=== PATIENT | male | born 1950 | race Caucasian/White ===

== ENCOUNTER 2019-10-13 19:07 | Inpatient (IN) | payer OTHER ==
[~2019-10-13] VITALS: Ht 188 cm; Wt 118.1 kg
[2019-10-13 18:50] VITALS: BP 114/75
--- NOTE | 2019-10-13 18:50 | NUR ---
A 69 YEAR OLD MALE admitted to , under the services of KARLIE Jensen DO with a diagnosis of COVID-19. Chief complaint is SOB, ONSET 2 DAYS AGO,BODY ACHES, DIZZINESS.PULSE OX 84% ON RA. Patient arrived via stretcher from [place]. Monitor applied. Initial assessment completed. Vital signs taken and recorded. KARLIE JENSEN DO notified of admission to the unit. Orders received. See assessment for past medical history, medications and allergies. Patient and/or family oriented to unit. [facility] visitation policy reviewed. Clothing/patient valuable form completed. TERESITA VENEGAS
[2019-10-13] MEDS ORDERED: ASPIRIN CHEWABL81 MG PO (19:14)
[2019-10-13] MEDS ORDERED: TYLENOL325 M2 PO (19:14)
[2019-10-13] MEDS ORDERED: LIPITOR40 MG PO (19:14)
[2019-10-13] MEDS ORDERED: CYMBALTA60 MG PO (19:15)
[2019-10-13] MEDS ORDERED: LEVOTHYROXINE100 MC1 PO (19:15)
[2019-10-13] MEDS ORDERED: SINEMET CR 25-1 EACH PO (19:15)
[2019-10-13] MEDS ORDERED: LEVOTHYROXINE175 MCG PO (19:16)
[2019-10-13] MEDS ORDERED: LOPRESSOR25 MG PO (19:17)
[2019-10-13] MEDS ORDERED: LOPERAMIDE HCL2 MG PO (19:17)
[2019-10-13] MEDS ORDERED: ZOLOFT100 MG PO (19:18)
[2019-10-13] MEDS ORDERED: DILANTIN100 MG PO (19:18)
[2019-10-13] MEDS ORDERED: IMDUR SA60 MG PO (19:20)
--- NOTE | 2019-10-13 19:20 | NUR ---
MEDS RECONCILLED FROM LIST PROVIDED
[2019-10-13 19:26] LABS: ARTERIAL BLOOD GAS PH 7.441 (7.35-7.45)
[2019-10-13 20:00] VITALS: BP 131/70
[2019-10-13 20:01] LABS: HEMATOCRIT 37.3 % (42.0-52.0); MEAN CELL VOLUME 94.2 fl (80.0-94.0); MEAN CORPUSCULAR HGB 31.3 pg (27.0-31.0); MEAN CORPUSCULAR HGB CONC 33.2 g/dl (33.0-37.0); MEAN PLATELET VOLUME 9.4 fl (9.6-12.3); PLATELET COUNT AUTOMATED 247 10*3/uL (130-400); RED BLOOD COUNT 3.96 10*6/uL (4.50-5.90); RED CELL DISTRI WIDTH 12.9 % (0-14.5)
[2019-10-13 20:19] LABS: ALBUMIN 2.7 gm/dl (3.1-4.5); ALKALINE PHOSPHATASE 77 U/L (45-117); BUN 13 mg/dl (7-24); CHLORIDE 103 mmol/L (98-107); CREATININE 0.72 mg/dL (0.70-1.30); LDH 465 U/L (87-241); POTASSIUM 3.6 mmol/L (3.5-5.1); SGOT/AST 33 IU/L (3-35); SGPT/ALT 22 U/L (12-78); SODIUM 133 mmol/L (136-145); TOTAL PROTEIN 6.9 gm/dL (6.4-8.2)
[2019-10-13 20:21] LABS: TROPONIN I 0.093 ng/ml (<0.045)
[2019-10-13 20:26] LABS: ATYPICAL LYMPHS 1 % (0-0); BURR CELLS FEW; PLATELET SUFFICIENCY NORMAL (NORMAL); TOTAL CELLS COUNTED 100 #CELLS
[2019-10-14] VITALS (61 sets, daily range): BP systolic 70–155; BP diastolic 49–85
--- NOTE | 2019-10-14 01:00 | NUR ---
PT TITRATED TO A 50% VM. AT THIS TIME HE IS JOLANTA. WELL. SATS 93-94%.
[2019-10-14 01:30] LABS: BILIRUBIN NEGATIVE (NEGATIVE); CLARITY CLEAR (CLEAR); COLOR YELLOW (YELLOW); GLUCOSE NEGATIVE (NEGATIVE); KETONE 1+ (NEGATIVE); SPECIFIC GRAVITY 1.025 (1.005-1.030)
[2019-10-14 01:31] LABS: BLOOD TRACE-INTACT (NEGATIVE); LEUKO ESTERASE NEGATIVE (NEGATIVE); NITRITE NEGATIVE (NEGATIVE)
[2019-10-14 01:34] LABS: RBC 0-2 rbc/hpf (0-2)
[2019-10-14 01:35] LABS: BACTERIA 1+; EPITHELIAL CELLS 0-2; FINE GRANULAR CAST 0-2; MUCOUS 2+
--- NOTE | 2019-10-14 04:22 | NUR ---
0405 PT PREMEDICATED FOR EMERGENT INTUBATION. PT AGREEABLE TO INTUBATION. 0410 PT INTUBATED WITH SIZE [address] ORDOÑEZ AND MEDICAL DIR VISHAL. 24 AT [facility]. PLACEMENT CONFIRMED. PT TOLERATED FAIR. PT PLACED ON VENT AT PREVIOUS SETTINGS ORDERED PER DR. SANDY 0415 WRIST RESTRAINTS APPLIED BILATERALLY TO PREVENT SELF EXTUBATION. 0420 ADDITIONAL DOSE OF ZEMURON GIVEN PER ORDER AND EFFECTIVE. PT PLACED ON 100%B FIO2. 0430 #16 GRIMM INSERTED USING STERILE TECHNIQUE. TOLERATED FAIR. DR. ORDOÑEZ TO INSERT ART LINE AND MLC.
--- NOTE | 2019-10-14 05:45 | NUR ---
0500 R RADIAL ART LINE INSERTED. TOLERATED WELL. ZEROED AND CALIBRATED. RIJ MLC INSERTED. STERILE DRSG TO SITE. ALL PORTS PATENT AND FLUSH WELL. #16 OGT INSERTED. TOLERATED WELL. CLAMPED. 0550 COMPLETE BED CHANGE DONE. XRAY HERE FOR PORTABLE CXR TO CONFIRM ALL LINE PLACEMENTS. SEE INTERVENTION SCREEN FOR ALL APPROPRIATE INTERVENTIONS AND EMAR FOR ALL MEDS
[2019-10-14 05:48] LABS: ARTERIAL BLOOD GAS PH 7.276 (7.35-7.45)
--- NOTE | 2019-10-14 05:50 | NUR ---
PT RECTAL TEMP IS NOW 104.4. DR ORDOÑEZ HERE AND AWARE. GETTING HYPOTHERMIA BLANKET READY.
[2019-10-14 05:52] LABS: ABG BASE EXCESS -6.9 mmol/L (-2.0-2.0)
[2019-10-14 07:22] LABS: HEMATOCRIT 42.6 % (42.0-52.0); MEAN CELL VOLUME 96.4 fl (80.0-94.0); MEAN CORPUSCULAR HGB 31.4 pg (27.0-31.0); MEAN CORPUSCULAR HGB CONC 32.6 g/dl (33.0-37.0); MEAN PLATELET VOLUME 9.5 fl (9.6-12.3); PLATELET COUNT AUTOMATED 285 10*3/uL (130-400); RED BLOOD COUNT 4.42 10*6/uL (4.50-5.90); RED CELL DISTRI WIDTH 13.2 % (0-14.5); WHITE BLOOD COUNT 12.8 10*3/uL (4.8-10.8)
[2019-10-14 07:31] LABS: ACT PARTIAL THROMBO TIME 30.3 SECONDS (20.0-32.1); INTERNATIONAL NORM RATIO 1.2 (2.0-3.5)
--- NOTE | 2019-10-14 07:42 | NUR ---
Shift chart check completed.
[2019-10-14 07:48] LABS: BASOPHILS 1 % (0-1); BURR CELLS FEW; PLATELET SUFFICIENCY NORMAL (NORMAL); ROULEAUX SLIGHT; TOTAL CELLS COUNTED 100 #CELLS
[2019-10-14 07:50] LABS: ALBUMIN 2.7 gm/dl (3.1-4.5); ALKALINE PHOSPHATASE 94 U/L (45-117); BUN 15 mg/dl (7-24); CHLORIDE 104 mmol/L (98-107); CREATININE 0.93 mg/dL (0.70-1.30); POTASSIUM 3.9 mmol/L (3.5-5.1); SGOT/AST 49 IU/L (3-35); SGPT/ALT 28 U/L (12-78); SODIUM 136 mmol/L (136-145); TOTAL PROTEIN 7.6 gm/dL (6.4-8.2)
[2019-10-14 12:48] LABS: ARTERIAL BLOOD GAS PH 7.283 (7.35-7.45)
[2019-10-14 12:49] LABS: ABG BASE EXCESS -8.2 mmol/L (-2.0-2.0)
--- NOTE | 2019-10-14 20:00 | NUR ---
Patient resting on vent, no signs of distress.
--- NOTE | 2019-10-14 20:05 | NUR ---
1940 BURST SVT 150-160 VSS. TEMP 100.2 RECTAL..VENT SHOWS SQUARE WAVEFORM DR SANDY REQUESTED... 1945 RHYTHM BROKE RATE [address]... DR ARREDONDO CALLED.. EKG DONE & SHOWS SINUS TACH RATE 107..FENTANYL INCREASED TO SEE IF THAT HELPS
[2019-10-15] VITALS (97 sets, daily range): BP systolic 83–168; BP diastolic 44–94
--- NOTE | 2019-10-15 | NUR ---
Patients heart rates goes tach up to 140 for several minutes, then back to low 100's.
--- NOTE | 2019-10-15 02:00 | NUR ---
Patients heart rate normal sinus in the 80's, no other issues of tach.
--- NOTE | 2019-10-15 05:50 | NUR ---
RESP 36, TV 400-600, AGITATION. ROCURONIUM GIVEN. EFFECTIVE IMMEDIATELY. MONITORING.
[2019-10-15 06:31] LABS: HEMATOCRIT 41.5 % (42.0-52.0); MEAN CORPUSCULAR HGB 31.5 pg (27.0-31.0); MEAN CORPUSCULAR HGB CONC 32.5 g/dl (33.0-37.0); MEAN PLATELET VOLUME 10.3 fl (9.6-12.3); PLATELET COUNT AUTOMATED 331 10*3/uL (130-400); RED BLOOD COUNT 4.28 10*6/uL (4.50-5.90); RED CELL DISTRI WIDTH 13.2 % (0-14.5); WHITE BLOOD COUNT 12.1 10*3/uL (4.8-10.8)
[2019-10-15 06:38] LABS: CHLORIDE 108 mmol/L (98-107); CREATININE 1.25 mg/dL (0.70-1.30); POTASSIUM 4.2 mmol/L (3.5-5.1); SGOT/AST 35 IU/L (3-35); SGPT/ALT 32 U/L (12-78); SODIUM 140 mmol/L (136-145); TOTAL PROTEIN 6.1 gm/dL (6.4-8.2); TRIGLYCERIDES 161 mg/dl (<150)
[2019-10-15 06:42] LABS: ALKALINE PHOSPHATASE 72 U/L (45-117)
[2019-10-15 06:45] LABS: BUN 30 mg/dl (7-24)
[2019-10-15 07:40] LABS: ABG BASE EXCESS -6.4 mmol/L (-2.0-2.0); ARTERIAL BLOOD GAS PH 7.237 (7.35-7.45)
--- NOTE | 2019-10-15 08:00 | NUR ---
ASSESSMENT DONE - [facility] [place] SECRE & PATENT..DIPRIVAN & FENTANYL INFUSING FOR COMFORT.. LEVOPHED INFUSING FOR MAP<65...OGT PLACEMENT CHECKED WITH AIR BOLUS...FEEDING AT 20 CC/HR...GRIMM PATENT FOR STRAW URINE.. 0820 ROCURIUM GIVEN FOR CHANGES IN RESP.. 0825 EFFECTIVE
[2019-10-15 08:24] LABS: PLATELET SUFFICIENCY NORMAL (NORMAL); TOTAL CELLS COUNTED 100 #CELLS
[2019-10-15 08:25] LABS: ROULEAUX SLIGHT
--- NOTE | 2019-10-15 13:20 | NUR ---
ROCURIUM GIVEN FOR INCREASED TITAL VOLUMES AND CHANGES IN WACEFORMS 1330 MED EFFECTIVE
[2019-10-15 15:13] LABS: ABG BASE EXCESS -5.3 mmol/L (-2.0-2.0); ARTERIAL BLOOD GAS PH 7.241 (7.35-7.45)
--- NOTE | 2019-10-15 17:45 | NUR ---
ROCURIUM GIVEN 1755 MEDS EFFECTIVE
--- NOTE | 2019-10-15 20:00 | NUR ---
PT RESTING IN BED WITH EYES CLOSED. ENDOTUBE PATENT AND TIES SECURE. VENT SETTINGS VERIFIED AND FUNCTIONING WITHOUT DIFFICULTY. OGT PATENT, PLACEMENT VERIFIED, MEDS GIVEN VIA OGT AND FLUSHED WITHOUT DIFFICULTY. TF JOLANTA WELL. GRIMM PATENT FOR CLEAR STRAW URINE. RIGHT IJ MLC PATENT AND IVF'S INFUSING WITHOUT DIFFICULTY ORDERED. RIGHT ART LINE PATENT. DIPRIVANA ND FENTANYL FOR SEDATION EFFECTIVE.
[2019-10-16] VITALS (94 sets, daily range): BP systolic 90–167; BP diastolic 51–82
--- NOTE | 2019-10-16 04:07 | NUR ---
No changes were made to the vent tonight. Plats were taken every 4 hours as follows. Tube is a size 8 - 24 at the lip 1999 0000 - 24 0400 - 23
[2019-10-16 05:11] LABS: ABG BASE EXCESS 0.2 mmol/L (-2.0-2.0); ARTERIAL BLOOD GAS PH 7.328 (7.35-7.45)
[2019-10-16 05:39] LABS: ALBUMIN 2.4 gm/dl (3.1-4.5); CREATININE 1.62 mg/dL (0.70-1.30); POTASSIUM 4.5 mmol/L (3.5-5.1); TOTAL PROTEIN 7.2 gm/dL (6.4-8.2)
[2019-10-16 06:11] LABS: HEMATOCRIT 41.9 % (42.0-52.0); MEAN CORPUSCULAR HGB 30.8 pg (27.0-31.0); MEAN CORPUSCULAR HGB CONC 31.7 g/dl (33.0-37.0); MEAN PLATELET VOLUME 10.2 fl (9.6-12.3); PLATELET COUNT AUTOMATED 394 10*3/uL (130-400); RED BLOOD COUNT 4.32 10*6/uL (4.50-5.90); RED CELL DISTRI WIDTH 12.9 % (0-14.5); WHITE BLOOD COUNT 11.9 10*3/uL (4.8-10.8)
--- NOTE | 2019-10-16 06:30 | NUR ---
MEDICATED WITH ZEMURON SEVERAL TIMES THROUGHOUT SHIFT FOR AGITATION/SEDATION AND WAS EFFECTIVE.
[2019-10-16 06:45] LABS: POLYCHROMASIA SLIGHT; TOTAL CELLS COUNTED 100 #CELLS
[2019-10-16 06:46] LABS: BURR CELLS FEW; PLATELET SUFFICIENCY NORMAL (NORMAL)
[2019-10-16 11:34] LABS: ABG BASE EXCESS 1.9 mmol/L (-2.0-2.0); ARTERIAL BLOOD GAS PH 7.381 (7.35-7.45)
[2019-10-16 17:30] LABS: ABG BASE EXCESS 3.3 mmol/L (-2.0-2.0); ARTERIAL BLOOD GAS PH 7.418 (7.35-7.45)
--- NOTE | 2019-10-16 20:00 | NUR ---
MEDICATED WITH IV ROCURONIUM ORDERED FOR AGITATION.
--- NOTE | 2019-10-16 20:24 | NUR ---
24 HR chart check completed.
[2019-10-17] VITALS (100 sets, daily range): BP systolic 86–162; BP diastolic 28–77
[2019-10-17 05:10] LABS: ALBUMIN 2.3 gm/dl (3.1-4.5); ALKALINE PHOSPHATASE 83 U/L (45-117); BUN 45 mg/dl (7-24); CHLORIDE 100 mmol/L (98-107); CREATININE 1.28 mg/dL (0.70-1.30); POTASSIUM 3.9 mmol/L (3.5-5.1); SGOT/AST 18 IU/L (3-35); SGPT/ALT 31 U/L (12-78); SODIUM 137 mmol/L (136-145); TOTAL PROTEIN 6.6 gm/dL (6.4-8.2); TRIGLYCERIDES 229 mg/dl (<150)
[2019-10-17 06:10] LABS: BASO % 0.1 % (0.0-1.0); EOS % 0.1 % (1.0-4.0); LYMPH # 0.3 10*3/uL (1.3-4.4); LYMPH % 4.2 % (27.0-41.0); MEAN CELL VOLUME 96.6 fl (80.0-94.0); MEAN CORPUSCULAR HGB 30.9 pg (27.0-31.0); MEAN PLATELET VOLUME 10.5 fl (9.6-12.3); MONO # 0.4 10*3/uL (0.1-1.0); MONO % 5.5 % (3.0-9.0); NEUT # 7.2 10*3/uL (2.3-7.9); NEUT % 89.6 % (47.0-73.0); PLATELET COUNT AUTOMATED 398 10*3/uL (130-400); RED BLOOD COUNT 4.14 10*6/uL (4.50-5.90); RED CELL DISTRI WIDTH 12.8 % (0-14.5)
[2019-10-17 06:14] LABS: ARTERIAL BLOOD GAS PH 7.449 (7.35-7.45)
--- NOTE | 2019-10-17 06:30 | NUR ---
MEDICATED WITH IV ROCURONIUM ORDERED FOR BREATHING OVER THE VENT.
--- NOTE | 2019-10-17 08:00 | NUR ---
PT RESTING IN BED WITH EYES CLOSED. ENDOTUBE PATENT, TIES SECURE. VENT SETTINGS VERIFIED AND FUNCTIONING WITHOUT DIFFICULTY. OGT PATENT, PLACEMENT VERIFIED AND TF JOLANTA WELL. RIGHT IJ MLC PATENT, DRESSING DRY AND INTACT. IVF'S INFUSING ORDERED WITHOUT DIFFICULTY. GRIMM PATENT FOR CLEAR STRAW URINE. RIGHT ARTLINE PATENT, DRESSING DRY AND INTACT. PT REPOSITONED FOR COMFORT.
--- NOTE | 2019-10-17 09:30 | NUR ---
EKG OBTAINED AND QT 557. DR SANDY AND DR URIAS NOTIFIED. NEW ORDERS RECEIVED. DR FRANCO ANSWERING SERVICE CALLED ORDERED AND MESSAGE LEFT.
--- NOTE | 2019-10-17 10:00 | NUR ---
DR SANDY HERE AND UPDATED ON PT LABS AND CONDITION. NEW ORDERS RECEIVED.
[2019-10-17 15:28] LABS: ABG BASE EXCESS 5.1 mmol/L (-2.0-2.0); ARTERIAL BLOOD GAS PH 7.414 (7.35-7.45)
--- NOTE | 2019-10-17 20:06 | NUR ---
24 HR chart check completed.
--- NOTE | 2019-10-17 21:30 | NUR ---
MEDICATED WITH IV ROCURONIUM FOR BREATHING OVER THE VENT.
[2019-10-18] VITALS (49 sets, daily range): BP systolic 90–180; BP diastolic 49–82
--- NOTE | 2019-10-18 00:41 | NUR ---
MEDICATED WITH IV ROCURONIUM ORDERED FOR RESP OF 30-34. ONLY 100MG GIVEN.
[2019-10-18 05:22] LABS: ALBUMIN 2.3 gm/dl (3.1-4.5); ALKALINE PHOSPHATASE 70 U/L (45-117); CHLORIDE 104 mmol/L (98-107); CREATININE 0.82 mg/dL (0.70-1.30); POTASSIUM 3.9 mmol/L (3.5-5.1); SGOT/AST 20 IU/L (3-35); SGPT/ALT 26 U/L (12-78); SODIUM 142 mmol/L (136-145); TOTAL PROTEIN 6.2 gm/dL (6.4-8.2); TRIGLYCERIDES 279 mg/dl (<150)
[2019-10-18 05:40] LABS: BUN 33 mg/dl (7-24)
[2019-10-18 05:41] LABS: TROPONIN I 0.277 ng/ml (<0.045)
--- NOTE | 2019-10-18 05:48 | NUR ---
MEDICATED WITH IV ROCURONIUM ORDERED FOR BREATHING OVER THE VENT.
[2019-10-18 06:21] LABS: BASO % 0.2 % (0.0-1.0); EOS # 0.2 10*3/uL (0.0-0.4); EOS % 3.5 % (1.0-4.0); HEMATOCRIT 40.6 % (42.0-52.0); LYMPH # 0.5 10*3/uL (1.3-4.4); MEAN CELL VOLUME 99.3 fl (80.0-94.0); MEAN CORPUSCULAR HGB 31.3 pg (27.0-31.0); MEAN CORPUSCULAR HGB CONC 31.5 g/dl (33.0-37.0); MEAN PLATELET VOLUME 10.1 fl (9.6-12.3); MONO # 0.2 10*3/uL (0.1-1.0); MONO % 3.3 % (3.0-9.0); NEUT % 82.8 % (47.0-73.0); PLATELET COUNT AUTOMATED 331 10*3/uL (130-400); RED BLOOD COUNT 4.09 10*6/uL (4.50-5.90); RED CELL DISTRI WIDTH 13.2 % (0-14.5)
--- NOTE | 2019-10-18 07:43 | NUR ---
Shift chart check completed.24 HR chart check completed.
[2019-10-18 07:56] LABS: ABG BASE EXCESS 6.3 mmol/L (-2.0-2.0); ARTERIAL BLOOD GAS PH 7.455 (7.35-7.45)
[2019-10-18 11:54] LABS: ARTERIAL BLOOD GAS PH 7.416 (7.35-7.45)
--- NOTE | 2019-10-18 12:55 | NUR ---
SEDATION VACATION WAS DONE AT BEGINNING OF SHIFT, PT OPENED EYES ON COMMAND AND RESUMED AGAIN AT 30MCG/KG/MIN.
--- NOTE | 2019-10-18 12:57 | NUR ---
ON ASSESSMENT THIS AM PATIENT WAS ADEQUATELY SEDATED ON FENTANYL AT 15MCG/MIN AND DIPRIVAN AT 40MCG/KG/MIN. DURING THE MORNING HIS BP DROPPED TO 90'S. DIPRIVAN WAS DECREASED TO 20MCG/KG/MIN, BECAME RESTLESS AND TITRATED UP TO 30MCG/KG/MIN AND THIS IS EFFECTIVE. ARTERIAL LINE HAS BEEN ZEROED. MLC INTACT RIJ. DR SANDY, JOAN, AND ADONAY HAVE VISITED. PULMOCARE AT 20ML/HR. GRIMM PATENT JERROD URINE. SEE ALL APPROPRIATE INTERVENTIONS.
--- NOTE | 2019-10-18 19:35 | NUR ---
Pt suctioned for a moderate amt of creamy secretions.
[2019-10-19] VITALS (24 sets, daily range): BP systolic 89–163; BP diastolic 52–71
--- NOTE | 2019-10-19 04:51 | NUR ---
Did not need to change pts vent settings throughout the night. Pt breathed with the vent. FiO2 35% Plats ran every 4 hours at 21-20-20. Settings are [id number]+
[2019-10-19 04:54] LABS: BASO % 0.3 % (0.0-1.0); EOS # 0.2 10*3/uL (0.0-0.4); EOS % 3.1 % (1.0-4.0); HEMATOCRIT 43.5 % (42.0-52.0); LYMPH # 0.4 10*3/uL (1.3-4.4); LYMPH % 5.8 % (27.0-41.0); MEAN CELL VOLUME 98.9 fl (80.0-94.0); MEAN CORPUSCULAR HGB 31.4 pg (27.0-31.0); MEAN CORPUSCULAR HGB CONC 31.7 g/dl (33.0-37.0); MONO # 0.2 10*3/uL (0.1-1.0); MONO % 2.5 % (3.0-9.0); NEUT # 6.1 10*3/uL (2.3-7.9); PLATELET COUNT AUTOMATED 332 10*3/uL (130-400); RED CELL DISTRI WIDTH 13.2 % (0-14.5); WHITE BLOOD COUNT 7.1 10*3/uL (4.8-10.8)
--- NOTE | 2019-10-19 04:54 | NUR ---
Pt is a size 8.0 tube - 24 at the lip
[2019-10-19 05:18] LABS: ALBUMIN 2.5 gm/dl (3.1-4.5); ALKALINE PHOSPHATASE 80 U/L (45-117); BUN 31 mg/dl (7-24); CHLORIDE 107 mmol/L (98-107); CREATININE 0.82 mg/dL (0.70-1.30); POTASSIUM 4.2 mmol/L (3.5-5.1); SGOT/AST 33 IU/L (3-35); SGPT/ALT 31 U/L (12-78); SODIUM 143 mmol/L (136-145); TOTAL PROTEIN 6.6 gm/dL (6.4-8.2); TRIGLYCERIDES 302 mg/dl (<150)
[2019-10-19 06:06] LABS: HEP B CORE AB, IGM Negative (Negative); HEPATITIS B SURFACE AG Negative (Negative); HEPATITIS C VIRUS ANTIBODY <0.1 s/co (0.0-0.9)
[2019-10-19 06:16] LABS: ABG BASE EXCESS 5.2 mmol/L (-2.0-2.0); ARTERIAL BLOOD GAS PH 7.437 (7.35-7.45)
--- NOTE | 2019-10-19 08:35 | NUR ---
Assessment complete, Assistsing vent only during re-positioning , No spontaneous opening of eyes re: sedation, cough and gag intact. Oral suction for large amt clear secretions, Tongue coated and oral care was given. A-line secure, TLC secure. Soft restraint / adequate cieculation, shackles remain to BLE. Repositioned to left w/ assist.
--- NOTE | 2019-10-19 11:11 | NUR ---
Ramu Fraser and Troy in to evaulate. Dressing changed to central and arterial lines.
--- NOTE | 2019-10-19 17:20 | NUR ---
rEPOSITIONED Q2H. fACIAL SHAVE THIS am.
[2019-10-19 18:30] LABS: ABG BASE EXCESS 4.8 mmol/L (-2.0-2.0); ARTERIAL BLOOD GAS PH 7.436 (7.35-7.45)
--- NOTE | 2019-10-19 19:20 | NUR ---
Shift chart check completed.24 HR chart check completed.
--- NOTE | 2019-10-19 20:50 | NUR ---
ON ASSESSMENT PATIENT REMAINS ORALLY INTUBATED, ON DIPRIVAN AT 30MCG/KG/MIN AND FENTANYL AT 10MCG/MIN. PT WAS RESTLESS, ATTEMPTING TO SIT UP, DESATTING TO 70'S. ROCURONIUM WAS GIVEN AND EFFECTIVE. LARGE AMOUNT OF THICK BROWN MUCUS. RT RADIAL ART LINE INTACT. RIJ MLC INTACT. MARTY FROM RESPIRATORY HERE. HE HAS ADJUSTED THE VENTILATOR. SEE ALL APPROPRIATE INTERVENTIONS.
--- NOTE | 2019-10-19 21:00 | NUR ---
20:10 SpO2 80 UPON ENTERING ROOM. PT SUCTIONED AND PEEP RAISED FROM 10 TO 12. SpO2 NOW 87%. PEEP RAISED TO 14 PER PROTOCOL. SpO2 NOW 93%
--- NOTE | 2019-10-19 21:23 | NUR ---
21:10 SpO2 IS 88%, RAISED FiO2 FROM 30% TO 40% PER PROTOCOL. SpO2 NOW 93%
[2019-10-20] VITALS (24 sets, daily range): BP systolic 95–188; BP diastolic 57–76
--- NOTE | 2019-10-20 03:04 | NUR ---
INCONTINENT SMALL AMOUNT DRK BROWN LIQUID STOOL. REPOSITIONED.
[2019-10-20 05:40] LABS: ABG BASE EXCESS 3.9 mmol/L (-2.0-2.0); ARTERIAL BLOOD GAS PH 7.41 (7.35-7.45)
[2019-10-20 06:23] LABS: ALBUMIN 2.5 gm/dl (3.1-4.5); ALKALINE PHOSPHATASE 84 U/L (45-117); BUN 32 mg/dl (7-24); CHLORIDE 108 mmol/L (98-107); CREATININE 0.79 mg/dL (0.70-1.30); POTASSIUM 4.4 mmol/L (3.5-5.1); SGOT/AST 51 IU/L (3-35); SGPT/ALT 47 U/L (12-78); SODIUM 145 mmol/L (136-145); TOTAL PROTEIN 6.5 gm/dL (6.4-8.2)
[2019-10-20 06:36] LABS: BASO % 0.3 % (0.0-1.0); EOS # 0.2 10*3/uL (0.0-0.4); EOS % 2.6 % (1.0-4.0); HEMATOCRIT 44.8 % (42.0-52.0); LYMPH # 0.4 10*3/uL (1.3-4.4); LYMPH % 4.6 % (27.0-41.0); MEAN CELL VOLUME 99.6 fl (80.0-94.0); MEAN CORPUSCULAR HGB 31.6 pg (27.0-31.0); MEAN CORPUSCULAR HGB CONC 31.7 g/dl (33.0-37.0); MONO # 0.2 10*3/uL (0.1-1.0); MONO % 2.1 % (3.0-9.0); NEUT # 8.4 10*3/uL (2.3-7.9); NEUT % 88.8 % (47.0-73.0); PLATELET COUNT AUTOMATED 343 10*3/uL (130-400); RED CELL DISTRI WIDTH 13.2 % (0-14.5); WHITE BLOOD COUNT 9.4 10*3/uL (4.8-10.8)
--- NOTE | 2019-10-20 06:44 | NUR ---
MONITOR SHOWED AFIB WITH VR 140-150'S. DR ARREDONDO PHONED AND NOTIFIED. UPDATED HIM THAT METOPROLOL 25MG BID IS A HOME MED. WHILE I WAS TALKING TO HIM PT'S HEART RATE RETURNED TO SINUS WITH A RATE OF 102. EKG ORDERED.
--- NOTE | 2019-10-20 08:00 | NUR ---
PT REMAINS ON VENT AC 20. PEEP 14, TV 475, FIO2 40%. DRIPS MAINTAINED WITH PROPOFOL 30 CHRISS, FENTANYL [address] RIJ [address]PLACE AND SECURE. RT ARTERIAL LINE INPLACE AND ZERO COMPLETE. OGT PLACEMENT CHECKED WITH AIR BOLUS OVER STOMACH. TUBE FEEDING INCREASED TO 40CC/HR. GRIMM PATENT FOR JERROD URINE. REPOSITIONED. RESTING QUIETLY. ORAL CARE DONE. SUCTIONED FOR SMALL AMOUNT OF THICK BROWN MUCOUS. KUSHAL JOHNSON RN
--- NOTE | 2019-10-20 10:00 | NUR ---
DR SANDY HERE. INFORMED OF PATIENTS LABS AND UPDATED ON CONDITION. ORDERS RECEIVED.
--- NOTE | 2019-10-20 18:20 | NUR ---
ABG'S CHANO FROM ARTERIAL LINE. SENT TO LAB. PATIENT RESTING QUIETLY. VSS REMAIN STABLE. NO CHANGES IN PROPOFOL OR FENTANYL DRIPS. KUSHAL JOHNSON RN
[2019-10-20 18:35] LABS: ABG BASE EXCESS 4.1 mmol/L (-2.0-2.0); ARTERIAL BLOOD GAS PH 7.404 (7.35-7.45)
--- NOTE | 2019-10-20 19:33 | NUR ---
Shift chart check completed.24 HR chart check completed.
--- NOTE | 2019-10-20 20:58 | NUR ---
ON ASSESSMENT PATIENT ADEQUATELY SEDATED ON DIPRIVAN AT 30MCG/KG/MIN AND FENTANYL AT 10MCG. PT'S VENTILATOR LOOP WAS FLATTENED THEREFORE ROCURONIUM GIVEN AT 1948 WITH EFFECT. REPOSITIONED IN BED, SKIN INTACT. PT DIOPHORETIC MOST OF THE TIME. SCD'S IN PLACE. PULMOCARE AT 40ML/HR. RT RADIAL ARTERIAL LINE INTACT AND MONITOR ZEROED. RIJ MLC INTACT. SOFT RESTRAINTS IN PLACE WITHOUT COMPROMISE TO CIRCULATION. GRIMM PATENT JERROD URINE. SEE ALL APPROPRIATE INTERVENTIONS.
[2019-10-21] VITALS (13 sets, daily range): BP systolic 102–179; BP diastolic 55–83
[2019-10-21 00:04] LABS: TB1 Ag VALUE 0.11 IU/mL (.)
[2019-10-21 04:54] LABS: ALBUMIN 2.5 gm/dl (3.1-4.5); ALKALINE PHOSPHATASE 93 U/L (45-117); BUN 37 mg/dl (7-24); CHLORIDE 110 mmol/L (98-107); CREATININE 0.84 mg/dL (0.70-1.30); POTASSIUM 4.2 mmol/L (3.5-5.1); SGOT/AST 47 IU/L (3-35); SGPT/ALT 56 U/L (12-78); SODIUM 144 mmol/L (136-145); TOTAL PROTEIN 6.6 gm/dL (6.4-8.2)
--- NOTE | 2019-10-21 05:00 | NUR ---
COMPLETE BEDBATH HAS BEEN GIVEN AND TOLERATED. DIPRIVAN AND FENTANYL DRIPS CONTINUE WITH ADEQUATE SEDATION.
[2019-10-21 05:56] LABS: ABG BASE EXCESS 4.1 mmol/L (-2.0-2.0); ARTERIAL BLOOD GAS PH 7.425 (7.35-7.45)
--- NOTE | 2019-10-21 06:02 | NUR ---
PTS PF RATIO IS CURRENTLY 303
[2019-10-21 06:09] LABS: BASO % 0.5 % (0.0-1.0); EOS # 0.2 10*3/uL (0.0-0.4); EOS % 4.1 % (1.0-4.0); LYMPH # 0.6 10*3/uL (1.3-4.4); LYMPH % 9.5 % (27.0-41.0); MEAN CELL VOLUME 100.2 fl (80.0-94.0); MEAN CORPUSCULAR HGB 31.2 pg (27.0-31.0); MEAN CORPUSCULAR HGB CONC 31.1 g/dl (33.0-37.0); MEAN PLATELET VOLUME 10.6 fl (9.6-12.3); MONO # 0.2 10*3/uL (0.1-1.0); MONO % 3.4 % (3.0-9.0); NEUT # 4.8 10*3/uL (2.3-7.9); NEUT % 80.8 % (47.0-73.0); PLATELET COUNT AUTOMATED 342 10*3/uL (130-400); RED BLOOD COUNT 4.39 10*6/uL (4.50-5.90); RED CELL DISTRI WIDTH 13.1 % (0-14.5); WHITE BLOOD COUNT 5.9 10*3/uL (4.8-10.8)
--- NOTE | 2019-10-21 08:00 | NUR ---
PATIENT REMAINS ON VENT WITH ENDOTUBE 25CM AT LIP. OG TUBE SECURE WITH PULMOCARE INFUSING AT 50/HR. PLACEMENT CHECKED WITH AIR BOLUS. GRIMM PATENT FOR JERROD URINE. NO PERIPHERAL EDEMA NOTED. MLC/INPLACE AND SECURE RIJ. PROPOFOL AND FENTANYL INFUSING VIA RIJ/MLC. KUSHAL JOHNSON RN
--- NOTE | 2019-10-21 08:45 | NUR ---
PROPOFOL OFF TO CHECK PATIENTS NEURO STATUS.
--- NOTE | 2019-10-21 09:45 | NUR ---
DR SANDY HERE AND REVIEWED PATIENTS LABS, VENT SITTINGS AND CONDITION. ORDERS RECEIVED. KUSHAL JOHNSON RN
[2019-10-21 13:40] LABS: ABG BASE EXCESS 5.1 mmol/L (-2.0-2.0); ARTERIAL BLOOD GAS PH 7.421 (7.35-7.45)
--- NOTE | 2019-10-21 14:00 | NUR ---
Propofol titrated to 10mic/7.3cc/hr. Fentanyl remains at 5mic/1.2cc/hr Randi Ocampo Rn
--- NOTE | 2019-10-21 14:46 | NUR ---
PATIENT OPENING EYES WHEN ASKED. MOVEMENT OF LOWER EXTRITIMITIES NOTED SPONTANOUSLY BUT WHEN ASKED DOESN'T MOVE. KUSHAL JOHNSONRN
[2019-10-22] VITALS (13 sets, daily range): BP systolic 116–174; BP diastolic 55–72
[2019-10-22 04:52] LABS: ALBUMIN 2.7 gm/dl (3.1-4.5); ALKALINE PHOSPHATASE 83 U/L (45-117); BUN 38 mg/dl (7-24); CHLORIDE 110 mmol/L (98-107); CREATININE 0.81 mg/dL (0.70-1.30); POTASSIUM 3.8 mmol/L (3.5-5.1); SGOT/AST 41 IU/L (3-35); SGPT/ALT 52 U/L (12-78); SODIUM 144 mmol/L (136-145); TOTAL PROTEIN 6.7 gm/dL (6.4-8.2); TRIGLYCERIDES 214 mg/dl (<150)
[2019-10-22 05:51] LABS: ARTERIAL BLOOD GAS PH 7.427 (7.35-7.45)
[2019-10-22 06:09] LABS: BASO % 0.4 % (0.0-1.0); EOS # 0.2 10*3/uL (0.0-0.4); EOS % 2.6 % (1.0-4.0); HEMATOCRIT 43.9 % (42.0-52.0); LYMPH # 0.6 10*3/uL (1.3-4.4); LYMPH % 8.2 % (27.0-41.0); MEAN CORPUSCULAR HGB 30.8 pg (27.0-31.0); MEAN CORPUSCULAR HGB CONC 30.8 g/dl (33.0-37.0); MEAN PLATELET VOLUME 10.6 fl (9.6-12.3); MONO # 0.3 10*3/uL (0.1-1.0); MONO % 3.7 % (3.0-9.0); NEUT # 6.4 10*3/uL (2.3-7.9); NEUT % 84.2 % (47.0-73.0); PLATELET COUNT AUTOMATED 311 10*3/uL (130-400); RED BLOOD COUNT 4.39 10*6/uL (4.50-5.90); RED CELL DISTRI WIDTH 13.2 % (0-14.5); WHITE BLOOD COUNT 7.6 10*3/uL (4.8-10.8)
--- NOTE | 2019-10-22 07:00 | NUR ---
Shift chart check completed.
--- NOTE | 2019-10-22 09:00 | NUR ---
ASSESSMENT DONE. ETT SECURE - SEE VENT SCREEN.. RT ARTLINE SECURE & PATENT/ZERO'D & CALIBRATED WITH GOOD HEMODYNAMIC RESPONSE...RIJ-MLC SECURE & PATENT WITH ALL PORTS PATENT...DIPRIVAN AT 10mcg & FENTANYL @ 5mcg... OGT PLACEMENT CONFIRMED WITH AIR BOLUS THEN IRRIGATED WITH FREE WATER...GRIMM PATENT FOR STRAW URINE...
--- NOTE | 2019-10-22 11:00 | NUR ---
DR SANDY, DR MODI ROUNDED...DR CARSON CALLED IN - ALL CASSES REVIEWED AND ORDERS RECEIVED. POSSIBLE ATTEMPT TO WEAN 10/23/19...
--- NOTE | 2019-10-22 12:55 | NUR ---
HALDOL GIVEN 1355 RESTING BETTER
[2019-10-22 14:30] LABS: ABG BASE EXCESS 5.5 mmol/L (-2.0-2.0); ARTERIAL BLOOD GAS PH 7.443 (7.35-7.45)
--- NOTE | 2019-10-22 20:00 | NUR ---
PT RESTING IN BED WITH EYES CLOSED, AWAKENS WITH MINIMAL STIMULI. ENDOTUBE PATENT, TIES SECURE. VENT SETTINGS VERIFIED AND FUNCTIONING WITHOUT DIFFICULTY. OGT PATENT, PLACEMENT VERIFIED VIA AIR BOLUS. TF JOLANTA WELL. RIGHT IJ MLC PATENT DRESSING DRY AND INTACT. RIGHT ART LINE PATENT, DRESSING DRY AND INTACT. DIPRIVAN AND FENTANYL INFUSING ORDERED FOR SEDATION. GRIMM PATENT FOR CLEAR JERROD URINE. ISOLATION PRECAUTIONS MAINTAINED.
[2019-10-23] VITALS (21 sets, daily range): BP systolic 109–178; BP diastolic 46–71
[2019-10-23 05:41] LABS: ABG BASE EXCESS 5.4 mmol/L (-2.0-2.0); ARTERIAL BLOOD GAS PH 7.458 (7.35-7.45)
[2019-10-23 05:53] LABS: BASO % 0.3 % (0.0-1.0); EOS # 0.2 10*3/uL (0.0-0.4); EOS % 2.1 % (1.0-4.0); HEMATOCRIT 41.6 % (42.0-52.0); LYMPH # 0.8 10*3/uL (1.3-4.4); LYMPH % 8.5 % (27.0-41.0); MEAN CELL VOLUME 99.5 fl (80.0-94.0); MEAN CORPUSCULAR HGB 31.1 pg (27.0-31.0); MEAN CORPUSCULAR HGB CONC 31.3 g/dl (33.0-37.0); MEAN PLATELET VOLUME 10.2 fl (9.6-12.3); MONO # 0.4 10*3/uL (0.1-1.0); MONO % 4.7 % (3.0-9.0); NEUT # 7.9 10*3/uL (2.3-7.9); NEUT % 83.8 % (47.0-73.0); PLATELET COUNT AUTOMATED 279 10*3/uL (130-400); RED BLOOD COUNT 4.18 10*6/uL (4.50-5.90); RED CELL DISTRI WIDTH 13.1 % (0-14.5); WHITE BLOOD COUNT 9.5 10*3/uL (4.8-10.8)
[2019-10-23 06:05] LABS: ALBUMIN 2.5 gm/dl (3.1-4.5); ALKALINE PHOSPHATASE 84 U/L (45-117); BUN 34 mg/dl (7-24); CHLORIDE 111 mmol/L (98-107); CREATININE 0.69 mg/dL (0.70-1.30); POTASSIUM 3.6 mmol/L (3.5-5.1); SGOT/AST 33 IU/L (3-35); SGPT/ALT 45 U/L (12-78); SODIUM 144 mmol/L (136-145); TOTAL PROTEIN 6.4 gm/dL (6.4-8.2); TRIGLYCERIDES 278 mg/dl (<150)
--- NOTE | 2019-10-23 08:13 | NUR ---
ETT REMAINS INPLACE AND SECURED 26CM @ LIP PLATEAU PRESSURE -15 DRIVING PRESSURE - 7 NO RES DISTRESS OR SOB NOTED AT THIS TIME.
--- NOTE | 2019-10-23 11:45 | NUR ---
ETT 26CM @ LIP. REMAINS INPLACE AND SECURED. PLATEAU PRESSURE - 19 DRIVING PRESSURE 11 NO RES DISTRESS OR SOB NOTED AT THIS TIME.
--- NOTE | 2019-10-23 11:45 | NUR ---
ETT REMAINS INPLACE AND SECURED 26 @ LIP PLATEAU PRESSURE - 19 DRIVING PRESSURE - 11 NO RES DISTRESS OR SOB NOTED AT THIS TIME.
[2019-10-23 12:00] LABS: ARTERIAL BLOOD GAS PH 7.434 (7.35-7.45)
--- NOTE | 2019-10-23 15:45 | NUR ---
ETT REMAINS INPLACE AND SECURED 26 @ THE LIP. PLATEAU PRESSURE - 17 DRIVING PRESSURE - 11 PEEP TITRATED TO +6 95%/64 NO RES DISTRESS OR SOB NOTED AT THIS TIME.
--- NOTE | 2019-10-23 20:00 | NUR ---
HALDOL GIVEN AT 1930 FOR AGITATION EFFECTIVE.
--- NOTE | 2019-10-23 20:37 | NUR ---
CHART CHECK COMPLETE.
[2019-10-24] VITALS (25 sets, daily range): BP systolic 93–168; BP diastolic 46–75
--- NOTE | 2019-10-24 01:33 | NUR ---
EYE GTTS, SUCTIONING ETT FOR THICK SECRETIONS, ASSIST TO POSITION OF COMFORT.
--- NOTE | 2019-10-24 02:18 | NUR ---
HALDOL FOR RESTLESSNESS/ANXIETY.
--- NOTE | 2019-10-24 02:39 | NUR ---
PT WATCHING TV.
--- NOTE | 2019-10-24 03:03 | NUR ---
HALDOL EFFECTIVE....PT APPEARS RELAXED.
[2019-10-24 05:07] LABS: BASO % 0.5 % (0.0-1.0); EOS # 0.2 10*3/uL (0.0-0.4); EOS % 2.4 % (1.0-4.0); HEMATOCRIT 41.3 % (42.0-52.0); LYMPH # 0.8 10*3/uL (1.3-4.4); LYMPH % 9.3 % (27.0-41.0); MEAN CELL VOLUME 99.8 fl (80.0-94.0); MEAN CORPUSCULAR HGB 31.4 pg (27.0-31.0); MEAN CORPUSCULAR HGB CONC 31.5 g/dl (33.0-37.0); MEAN PLATELET VOLUME 10.3 fl (9.6-12.3); MONO # 0.5 10*3/uL (0.1-1.0); MONO % 6.1 % (3.0-9.0); NEUT # 6.9 10*3/uL (2.3-7.9); NEUT % 81.2 % (47.0-73.0); PLATELET COUNT AUTOMATED 286 10*3/uL (130-400); RED BLOOD COUNT 4.14 10*6/uL (4.50-5.90); WHITE BLOOD COUNT 8.4 10*3/uL (4.8-10.8)
[2019-10-24 05:24] LABS: ALBUMIN 2.6 gm/dl (3.1-4.5); ALKALINE PHOSPHATASE 90 U/L (45-117); BUN 30 mg/dl (7-24); CHLORIDE 108 mmol/L (98-107); CREATININE 0.62 mg/dL (0.70-1.30); POTASSIUM 3.4 mmol/L (3.5-5.1); SGOT/AST 32 IU/L (3-35); SGPT/ALT 40 U/L (12-78); SODIUM 142 mmol/L (136-145); TOTAL PROTEIN 6.3 gm/dL (6.4-8.2); TRIGLYCERIDES 237 mg/dl (<150)
--- NOTE | 2019-10-24 05:40 | NUR ---
HEPARIN GTT TURNED OFF FOR 1 HOUR AT THIS TIME DUE TO PTT OF 123
[2019-10-24 05:49] LABS: ABG BASE EXCESS 5.2 mmol/L (-2.0-2.0); ARTERIAL BLOOD GAS PH 7.461 (7.35-7.45)
--- NOTE | 2019-10-24 11:00 | NUR ---
PER DR SANDY FENTANYL GTT DC'D IN COMPUTER DO NOT HANG A NEW BAG BUT OK TO FINISH UP CURRENT BAG UNTIL EMPTY.
--- NOTE | 2019-10-24 11:07 | NUR ---
PT PLACED ON CPAP AT THIS TIME PER RESPIRATORY THERAPY.
--- NOTE | 2019-10-24 12:35 | NUR ---
11:00 MODE CHANGED TO CPAP OF [address] SANDY. RESPS REGULAR AND UNLABORED. TOLERATING WELL. SUCTIONED FOR MOD TO LARGE KELLY SECRETIONS.
--- NOTE | 2019-10-24 13:09 | NUR ---
HEPARIN GTT ON HOLD FOR PTT OF 96
[2019-10-24 13:22] LABS: ABG BASE EXCESS 4.1 mmol/L (-2.0-2.0); ARTERIAL BLOOD GAS PH 7.483 (7.35-7.45)
--- NOTE | 2019-10-24 13:31 | NUR ---
PT TOLERATING CPAP. POX 94% ON 30% O2. NSR. RESTING COMFORTABLY IN BED WITH EYES CLOSED.
[2019-10-24 15:49] LABS: ALBUMIN 2.7 gm/dl (3.1-4.5); ALKALINE PHOSPHATASE 91 U/L (45-117); BUN 27 mg/dl (7-24); CHLORIDE 110 mmol/L (98-107); CREATININE 0.72 mg/dL (0.70-1.30); POTASSIUM 4.2 mmol/L (3.5-5.1); SGOT/AST 28 IU/L (3-35); SGPT/ALT 41 U/L (12-78); SODIUM 143 mmol/L (136-145); TOTAL PROTEIN 6.3 gm/dL (6.4-8.2)
[2019-10-24 16:00] LABS: ABG BASE EXCESS 2.8 mmol/L (-2.0-2.0); ARTERIAL BLOOD GAS PH 7.443 (7.35-7.45)
--- NOTE | 2019-10-24 18:48 | NUR ---
18:00 MODE CHANGED TO AC WITH PREVIOUS PARAMETERS FROM CPAP. TO STAY AC T/O THE NIGHT.
--- NOTE | 2019-10-24 20:41 | NUR ---
PTT 67.4. NO CHANGE IN HEPARIN GTT.
--- NOTE | 2019-10-24 21:41 | NUR ---
PT UNDERLINENS CHANGED. PT PULLED UP AND REPOSITIONED. REQUESTING SOMETHING TO HELP HIM RELAX. SHAKES HEAD NO TO BEDSIDE GLUCOSE. MEDICATED WITH HALDOL AT THAT TIME. EFFECTIVE...PT DOZING, BODY RELAXED.
[2019-10-25] VITALS (24 sets, daily range): BP systolic 107–172; BP diastolic 35–76
--- NOTE | 2019-10-25 00:01 | NUR ---
PLATEAU PRESSURE:12, DRIVE:6, P/F RATIO:236
--- NOTE | 2019-10-25 02:34 | NUR ---
PERIODIC ANXIETY CONTINUES.
[2019-10-25 04:42] LABS: ABG BASE EXCESS 0.9 mmol/L (-2.0-2.0); ARTERIAL BLOOD GAS PH 7.389 (7.35-7.45)
--- NOTE | 2019-10-25 05:13 | NUR ---
COMPLETE BATH AND BED LINEN CHANGE DONE.
--- NOTE | 2019-10-25 05:16 | NUR ---
PTT 54.1. NO CHANGE IN HEPARIN GTT PER PROTOCOL.
[2019-10-25 05:25] LABS: ALBUMIN 2.6 gm/dl (3.1-4.5); ALKALINE PHOSPHATASE 92 U/L (45-117); BUN 25 mg/dl (7-24); CHLORIDE 109 mmol/L (98-107); CREATININE 0.61 mg/dL (0.70-1.30); POTASSIUM 3.9 mmol/L (3.5-5.1); SGOT/AST 30 IU/L (3-35); SGPT/ALT 39 U/L (12-78); SODIUM 140 mmol/L (136-145); TOTAL PROTEIN 6.3 gm/dL (6.4-8.2)
[2019-10-25 06:13] LABS: BASO # 0.1 10*3/uL (0.0-0.1); BASO % 0.4 % (0.0-1.0); EOS # 0.2 10*3/uL (0.0-0.4); EOS % 1.3 % (1.0-4.0); LYMPH # 0.8 10*3/uL (1.3-4.4); LYMPH % 5.9 % (27.0-41.0); MEAN CELL VOLUME 99.5 fl (80.0-94.0); MEAN CORPUSCULAR HGB 31.3 pg (27.0-31.0); MEAN CORPUSCULAR HGB CONC 31.4 g/dl (33.0-37.0); MEAN PLATELET VOLUME 11.1 fl (9.6-12.3); MONO # 0.6 10*3/uL (0.1-1.0); MONO % 4.5 % (3.0-9.0); NEUT # 12.2 10*3/uL (2.3-7.9); NEUT % 87.3 % (47.0-73.0); PLATELET COUNT AUTOMATED 314 10*3/uL (130-400); RED BLOOD COUNT 4.22 10*6/uL (4.50-5.90); RED CELL DISTRI WIDTH 13.2 % (0-14.5); WHITE BLOOD COUNT 13.9 10*3/uL (4.8-10.8)
[2019-10-25 10:13] LABS: ABG BASE EXCESS 2.4 mmol/L (-2.0-2.0); ARTERIAL BLOOD GAS PH 7.445 (7.35-7.45)
[2019-10-25 12:00] LABS: ARTERIAL BLOOD GAS PH 7.442 (7.35-7.45)
[2019-10-25 17:12] LABS: ABG BASE EXCESS 2.8 mmol/L (-2.0-2.0); ARTERIAL BLOOD GAS PH 7.461 (7.35-7.45)
--- NOTE | 2019-10-25 20:00 | NUR ---
PT RESTING IN BED AWAKE AND ALERT, CALM. ENDOTUBE PATENT, TIES SECURE, VENT SETTINGS VERIFIED AND FUNCTIONING WITHOUT DIFFICULTY. OGT PATENT, PLACEMENT VERIFIED VIA AIR BOLUS AND TF JOLANTA WELL. RIGHT IJ MLC PATENT, DRESSING DRY AND INTACT. RIGHT ART LINE PATENT, DRESSING DRY AND INTACT, FLUSHED WITHOUT DIFFICULTY. GRIMM PATENT FOR CLEAR JERROD URINE. NO ACUTE DISTRESS NOTED AT THIS TIME. NO S/S OF HYPO/HYPERGLYCEMIA NOTED. ISOLATION PRECAUTIONS MAINTAINED.
[2019-10-26] VITALS (27 sets, daily range): BP systolic 106–165; BP diastolic 53–67
[2019-10-26 05:19] LABS: ABG BASE EXCESS 3.1 mmol/L (-2.0-2.0); ARTERIAL BLOOD GAS PH 7.439 (7.35-7.45)
[2019-10-26 06:39] LABS: ALBUMIN 2.6 gm/dl (3.1-4.5); ALKALINE PHOSPHATASE 98 U/L (45-117); BUN 24 mg/dl (7-24); CHLORIDE 106 mmol/L (98-107); CREATININE 0.73 mg/dL (0.70-1.30); SGOT/AST 33 IU/L (3-35); SGPT/ALT 47 U/L (12-78); SODIUM 140 mmol/L (136-145); TOTAL PROTEIN 6.3 gm/dL (6.4-8.2); TRIGLYCERIDES 247 mg/dl (<150)
[2019-10-26 06:41] LABS: PREALBUMIN 24 mg/dl (20-40)
[2019-10-26 06:55] LABS: BASO % 0.3 % (0.0-1.0); EOS # 0.2 10*3/uL (0.0-0.4); EOS % 1.9 % (1.0-4.0); HEMATOCRIT 40.6 % (42.0-52.0); LYMPH # 0.8 10*3/uL (1.3-4.4); LYMPH % 6.8 % (27.0-41.0); MEAN CELL VOLUME 98.1 fl (80.0-94.0); MEAN CORPUSCULAR HGB 31.6 pg (27.0-31.0); MEAN CORPUSCULAR HGB CONC 32.3 g/dl (33.0-37.0); MEAN PLATELET VOLUME 11.4 fl (9.6-12.3); MONO # 0.6 10*3/uL (0.1-1.0); MONO % 4.7 % (3.0-9.0); NEUT # 10.1 10*3/uL (2.3-7.9); NEUT % 85.8 % (47.0-73.0); PLATELET COUNT AUTOMATED 307 10*3/uL (130-400); RED BLOOD COUNT 4.14 10*6/uL (4.50-5.90); RED CELL DISTRI WIDTH 13.1 % (0-14.5); WHITE BLOOD COUNT 11.7 10*3/uL (4.8-10.8)
--- NOTE | 2019-10-26 07:55 | NUR ---
PT CONTINUES ON CPAP AT THIS TIME. PT TOLERATING WELL. PT IS SUCTIONED FOR COPIOUS AMOUNT OF SPUTUM. CHANGED LITTLE AND LACY. HR 90, SPO2 93%
--- NOTE | 2019-10-26 10:38 | NUR ---
CPAP CHANGED TO 15/8, PER DR SANDY, SPO2 94%, HR 83. ABG IN 2 HRS.
[2019-10-26 14:15] LABS: ABG BASE EXCESS 1.9 mmol/L (-2.0-2.0); ARTERIAL BLOOD GAS PH 7.441 (7.35-7.45)
--- NOTE | 2019-10-26 17:37 | NUR ---
DRESSING TO RIGHT IJ MLC CHANGED AT THIS TIME PER POLICY.
--- NOTE | 2019-10-26 22:50 | NUR ---
RN IN TO ASSESS PATIENT, PATIENT INCONTINENT OF LARGE BROWN AND BLOODY BOWEL MOVEMENT. PATIENT CLEANED UP AND BEGAN COUGHING, PATIENT SUCTIONED FOR MODERATE AMOUNT OF BLOODY/WHITE SPUTUM. DR ARREDONDO NOTIFIED AND ORDERED TO MONITOR PATIENT, AND STOP HEPARIN AND REEVALUATE IN THE MORNING.
[2019-10-27] VITALS (50 sets, daily range): BP systolic 86–159; BP diastolic 40–75
[2019-10-27 05:33] LABS: ALBUMIN 2.5 gm/dl (3.1-4.5); ALKALINE PHOSPHATASE 93 U/L (45-117); BUN 31 mg/dl (7-24); CHLORIDE 106 mmol/L (98-107); CREATININE 0.82 mg/dL (0.70-1.30); POTASSIUM 4.5 mmol/L (3.5-5.1); SGOT/AST 29 IU/L (3-35); SGPT/ALT 51 U/L (12-78); SODIUM 139 mmol/L (136-145); TOTAL PROTEIN 6.4 gm/dL (6.4-8.2)
[2019-10-27 05:50] LABS: ABG BASE EXCESS 2.9 mmol/L (-2.0-2.0); ARTERIAL BLOOD GAS PH 7.484 (7.35-7.45)
[2019-10-27 06:04] LABS: HEMATOCRIT 40.4 % (42.0-52.0); MEAN CELL VOLUME 96.2 fl (80.0-94.0); MEAN CORPUSCULAR HGB 31.2 pg (27.0-31.0); MEAN CORPUSCULAR HGB CONC 32.4 g/dl (33.0-37.0); MEAN PLATELET VOLUME 11.5 fl (9.6-12.3); PLATELET COUNT AUTOMATED 321 10*3/uL (130-400); RED CELL DISTRI WIDTH 13.2 % (0-14.5)
[2019-10-27 06:27] LABS: ACT PARTIAL THROMBO TIME 27.7 SECONDS (20.0-32.1)
[2019-10-27 07:18] LABS: PLATELET SUFFICIENCY NORMAL (NORMAL); TOTAL CELLS COUNTED 100 #CELLS
--- NOTE | 2019-10-27 08:40 | NUR ---
PT AAWAKE AND ALERT. PT REMAINS INTUBATED WITH A #8 ENDOTUBE,24 CM AT THE LIP. LIP LEVEL IS SUPPOSED TO BE AT 26CMS. WILL INFORM RESP. THERAPY. SCATTERED RHONCHI NOTED IN LUNG BECK. PT SUCTIONED THROUGH ENDOTUBE FOR LARGE AMOUNT OF YELLOW-WHITE COLORED SECRETIONS. OGT PLACEMENT VERIFIED WITH AN AIR BOLUS. PULMOCARE TUBE FEEDINGS INFUSING AT 60CC/HR. ABD. SOFT WITH ACTIVE BOWEL SOUNDS. PT HAD A SMALL LIQUID BROWN BM AFTER PLACED ON BEDPAN. GRIMM CATH PATENT FOR CLEAR JERROD URINE. EDEMA NOTED TO PT'S HANDS. PT'S RECTAL TEMP 101.1 AFTER INSERTING RECTAL TEMP. PROBE. PT'S MAP RUNNING 60-64. WILL UPDATE DOCTORS.
--- NOTE | 2019-10-27 09:32 | NUR ---
MEDICATED PT PER PRN ORDER WITH TYLENOL FOR RECTAL TEMP. 101.1.
--- NOTE | 2019-10-27 10:00 | NUR ---
DR SANDY HERE AND UPDATED ON PT'S CHANGE IN CONDITION. NEW ORDERS RECEIVED TO RESTART LEVOPHED GTT FOR PT'S LOW BP, PORTILLO CULTURES, AND TO CHANGE MLC AND ART LINE SITES AND SEND MLC TIP FOR CULTURE.
--- NOTE | 2019-10-27 10:30 | NUR ---
RECTAL TEMP 99.9. TYLENOL EFFECTIVE.
--- NOTE | 2019-10-27 12:30 | NUR ---
LEFT IJ MLC INSERTED BY JON LIM. STAT CXR ORDERED FOR PLACEMENT VERIFICATION. PT TOLERATED PROCEDURE WELL. PT'S DIPRIVAN GTT AT 30MOG/MIN. WILL D/C RIGHT IJ MLC WHEN PLACMENT VERIFICATION RECEIVED FROM CXR.
--- NOTE | 2019-10-27 13:15 | NUR ---
MEDICATED PT PER PRN ORDER WITH ZEMURON FOR PT'S AGITATION.
--- NOTE | 2019-10-27 13:40 | NUR ---
DR ORDOÑEZ PLACED A LEFT RADIAL ART LINE. PT TOLERATED PROCEDURE WELL. IV LEVOPHED GTT ON 10 MICS. MAP MID 70'S. WILL CONTINUE TO MONITOR PT.
--- NOTE | 2019-10-27 14:30 | NUR ---
RIGHT IJ MLC D/C'D INTACT AND TIP SENT FOR CULTURE PER ORDER. RIGHT RADIAL ART LINE D/C'D INTACT. PRESSURE DRESSING APPLIED. ENDOTUBE TAMER CHANGED BY RESP. THERAPISTS. PT TOLERATED PROCEDURES WELL.
[2019-10-27 16:06] LABS: ABG BASE EXCESS 0.7 mmol/L (-2.0-2.0); ARTERIAL BLOOD GAS PH 7.39 (7.35-7.45)
--- NOTE | 2019-10-27 18:13 | NUR ---
PT RESTING. VITAL SIGNS STABLE AT PRESENT TIME. WILL CONTINUE TO MONITOR PT.
[2019-10-28] VITALS (96 sets, daily range): BP systolic 88–174; BP diastolic 49–88
--- NOTE | 2019-10-28 02:00 | NUR ---
OFFICE ASSISTANT IN, STATES SHE WILL CONTACT FOR WOUND CARE ORDERS
--- NOTE | 2019-10-28 03:30 | NUR ---
PATIENT ASSISTED ONTO BED PORTILLO PER REQUEST, AFTER SOME TIME, PATIENT HAD SMALL BROWN BOWEL MOVEMENT. PATIENT REPOSITIONED.
--- NOTE | 2019-10-28 05:00 | NUR ---
AM LABS DRAWN AT THIS TIME. RN UNABLE TO OBTIAN BLOOD FROM THE MLC ALTHOUGH IT FLUSHES ADEQUATELY. RN UNABLE TO OBTAIN A VENOUS LAB DRAW TO COLLECT SPECIMEN. LABS WERE DRAWN OUT OF ART LINE. PATIENT REPOSITIONED
[2019-10-28 05:44] LABS: ABG BASE EXCESS 2.2 mmol/L (-2.0-2.0); ARTERIAL BLOOD GAS PH 7.404 (7.35-7.45)
[2019-10-28 06:02] LABS: BASO # 0.1 10*3/uL (0.0-0.1); BASO % 0.7 % (0.0-1.0); EOS # 0.5 10*3/uL (0.0-0.4); EOS % 4.8 % (1.0-4.0); HEMATOCRIT 35.7 % (42.0-52.0); LYMPH % 9.4 % (27.0-41.0); MEAN CELL VOLUME 97.5 fl (80.0-94.0); MEAN CORPUSCULAR HGB 31.4 pg (27.0-31.0); MEAN CORPUSCULAR HGB CONC 32.2 g/dl (33.0-37.0); MEAN PLATELET VOLUME 10.8 fl (9.6-12.3); MONO # 0.8 10*3/uL (0.1-1.0); MONO % 7.5 % (3.0-9.0); NEUT # 7.8 10*3/uL (2.3-7.9); PLATELET COUNT AUTOMATED 287 10*3/uL (130-400); RED BLOOD COUNT 3.66 10*6/uL (4.50-5.90); RED CELL DISTRI WIDTH 13.3 % (0-14.5); WHITE BLOOD COUNT 10.2 10*3/uL (4.8-10.8)
[2019-10-28 06:34] LABS: ALBUMIN 2.3 gm/dl (3.1-4.5); CHLORIDE 105 mmol/L (98-107); POTASSIUM 3.8 mmol/L (3.5-5.1); SODIUM 137 mmol/L (136-145)
[2019-10-28 06:37] LABS: ALKALINE PHOSPHATASE 93 U/L (45-117); CREATININE 0.63 mg/dL (0.70-1.30); SGOT/AST 23 IU/L (3-35); SGPT/ALT 38 U/L (12-78); TOTAL PROTEIN 5.7 gm/dL (6.4-8.2)
[2019-10-28 06:42] LABS: BUN 19 mg/dl (7-24)
--- NOTE | 2019-10-28 07:12 | NUR ---
ANGELA JACQUES [id number] Please refer to the physician's history and physical for past medical history, comorbid conditions, and allergies. Diagnosis: COVID-19 INFECTION George Score: 14,MODERATE RISK WOUND DESCRIPTIONS: Wound Number: 1 Location of the wound: left lateral heel Type of wound: DTI Size: 2.5cm x 3.0cm x <0.1cm Tunneling: none Undermining: none Sinus Tract: none Presence of Exudate: none Amount: None Color: Purple, brown, dark red Odor: None Periwound Skin Appearance: Normal Wound edges: approximated Pain (associated with wound): none at time of assessment How does patient state this happened? pt unable to state how this happened Surface the patient is resting on: Position Pro SKIN PREVENTION RECOMMENDATION: 1. Pressure redistribution support surface as appropriate 2. Elevate heels 3. Remove boots/TEDS every shift and reapply 4. Head of bed 30 degrees as tolerated 5. Assess nutrition and hydration 6. Manage moisture 7. Avoid the use of containment devices while in bed 8. Use absorptive products on surfaces limit layers of linens on bed 9. Turn and reposition every 1-2 hours in bed and every 1 hour in chair as tolerated 10. Weight shifts every 15 minutes while up in chair 11. Offloading with pillows or device to keep heels elevated off bed 12. Monitor skin at least every shift 13. Inspect under medical devices twice a day WOUND TREATMENT RECOMMENDATIONS: DTI guidelines: Apply sureprep to left lateral heel and allow time to dry then cover with optifoam gentle daily and prn for soiling. Heel raiser pro boots to bilateral feet while in bed.
[2019-10-28 09:22] LABS: ABG BASE EXCESS 2.2 mmol/L (-2.0-2.0); ARTERIAL BLOOD GAS PH 7.412 (7.35-7.45)
--- NOTE | 2019-10-28 11:35 | NUR ---
HERE. UPDATED ON PATIENT CONDITION AND LABS. NEW ORDERS RECEIVED.
--- NOTE | 2019-10-28 19:10 | NUR ---
CHART CHECK COMPLETE.
--- NOTE | 2019-10-28 22:36 | NUR ---
PT NODS YES TO QUESTION OF COMFORT. HAS TOLERATED LEVOPHED TITRATION DOWN TO 10MCG/MIN AT THIS TIME.
[2019-10-29] VITALS (96 sets, daily range): BP systolic 93–174; BP diastolic 47–74
--- NOTE | 2019-10-29 02:39 | NUR ---
LEVOPHED TITRATION TO 6MCG/MIN TOLERATED BY PT. DESPITE PT RESISTENCE, PT REPOSITIONED IN BED AND HE NODS HEAD TO QUESTION OF COMFORT POST POSITIONING.
[2019-10-29 05:20] LABS: ALKALINE PHOSPHATASE 80 U/L (45-117); BUN 17 mg/dl (7-24); CHLORIDE 105 mmol/L (98-107); CREATININE 0.51 mg/dL (0.70-1.30); POTASSIUM 3.7 mmol/L (3.5-5.1); SGOT/AST 23 IU/L (3-35); SGPT/ALT 34 U/L (12-78); SODIUM 139 mmol/L (136-145); TOTAL PROTEIN 5.5 gm/dL (6.4-8.2)
[2019-10-29 05:23] LABS: ABG BASE EXCESS 3.6 mmol/L (-2.0-2.0); ARTERIAL BLOOD GAS PH 7.419 (7.35-7.45)
--- NOTE | 2019-10-29 06:18 | NUR ---
PTT 58.2 NO CHANGE IN HEPARIN GTT. PT TOLERATING TITRATION OF LEVOPHED TO 4MCG/MIN. APPEARS SEDATED, BODY RELAXED.
[2019-10-29 06:25] LABS: BASO # 0.1 10*3/uL (0.0-0.1); BASO % 0.8 % (0.0-1.0); EOS # 0.6 10*3/uL (0.0-0.4); EOS % 7.8 % (1.0-4.0); HEMATOCRIT 32.7 % (42.0-52.0); LYMPH # 0.9 10*3/uL (1.3-4.4); LYMPH % 11.5 % (27.0-41.0); MEAN CELL VOLUME 97.9 fl (80.0-94.0); MEAN CORPUSCULAR HGB 31.4 pg (27.0-31.0); MEAN CORPUSCULAR HGB CONC 32.1 g/dl (33.0-37.0); MEAN PLATELET VOLUME 11.2 fl (9.6-12.3); MONO # 0.6 10*3/uL (0.1-1.0); MONO % 7.6 % (3.0-9.0); NEUT # 5.5 10*3/uL (2.3-7.9); NEUT % 71.4 % (47.0-73.0); PLATELET COUNT AUTOMATED 282 10*3/uL (130-400); RED BLOOD COUNT 3.34 10*6/uL (4.50-5.90); RED CELL DISTRI WIDTH 13.4 % (0-14.5); WHITE BLOOD COUNT 7.7 10*3/uL (4.8-10.8)
--- NOTE | 2019-10-29 06:54 | NUR ---
THICK SECRETIONS SUCTIONED FROM ETT. ORAL CARE DONE.
--- NOTE | 2019-10-29 08:20 | NUR ---
DR. URIAS HERE TO SEE PATIENT. COMPLETE BED AND BATH DONE. LIJ INTACT WITH DRESSING CHANGED TODAY. SUCTIONED VIA ET TUBE FOR BRIGHT RED SECRETIONS. TURNED AND REPOSITIONED ONTO LEFT SIDE. SMALL AMOUNT BURGENDY STOOL NOTED. ART LINE INTACT TO LEFT RADIAL. GRIMM DRAINING CLEAR YELLOW URINE. DIPRIVAN GTT INFUSING AT 30 CHRISS'S;FENTANYL GTT INFUSING AT 15 CHRISS'S; HEPARIN GTT AT 18 UNITS/KG/HR; AND LEVOPHED GTT AT 4 CHRISS'S. IS AWAKE WITH EYES OPWN AND FOLLOWING COMMANDS.
--- NOTE | 2019-10-29 09:30 | NUR ---
DR. SANDY NOTIFIED THAT STOOL IS BURGENDY IN COLOR WITH LARGE AMOUNT BRIGHT RED SECRETIONS FROM ET TUBE. DR. ORDOÑEZ ALSO AWARE AND HEPARIN GTT D/C'D.
[2019-10-29 10:38] LABS: ACT PARTIAL THROMBO TIME 56.9 SECONDS (20.0-32.1)
--- NOTE | 2019-10-29 14:00 | NUR ---
DR. SANDY HERE
[2019-10-29 14:59] LABS: BASO # 0.1 10*3/uL (0.0-0.1); BASO % 0.8 % (0.0-1.0); EOS # 0.4 10*3/uL (0.0-0.4); EOS % 5.2 % (1.0-4.0); HEMATOCRIT 35.3 % (42.0-52.0); LYMPH # 0.8 10*3/uL (1.3-4.4); LYMPH % 9.5 % (27.0-41.0); MEAN CELL VOLUME 98.6 fl (80.0-94.0); MEAN CORPUSCULAR HGB 31.8 pg (27.0-31.0); MEAN CORPUSCULAR HGB CONC 32.3 g/dl (33.0-37.0); MEAN PLATELET VOLUME 10.2 fl (9.6-12.3); MONO # 0.5 10*3/uL (0.1-1.0); MONO % 6.4 % (3.0-9.0); NEUT # 6.5 10*3/uL (2.3-7.9); NEUT % 77.3 % (47.0-73.0); PLATELET COUNT AUTOMATED 267 10*3/uL (130-400); RED BLOOD COUNT 3.58 10*6/uL (4.50-5.90); RED CELL DISTRI WIDTH 13.5 % (0-14.5); WHITE BLOOD COUNT 8.5 10*3/uL (4.8-10.8)
--- NOTE | 2019-10-29 15:00 | NUR ---
WEIGHTED NG TUBE PLACED IN LEFT NARE. X-RAY HERE AND DOES NOT LOOK LIKE ITS IN PLACE. PLACED ANOTHER WEIGHTED TUBE IN RIGHT NARE. CXR DONE. DR. SANDY HERE AND CONFIRMS NGT WITH CXR
--- NOTE | 2019-10-29 16:45 | NUR ---
NGT PLACED AGAIN. UNABLE TO PUSH MEDS. NO AIR BOLUS HEARD. CXR ORDERED
--- NOTE | 2019-10-29 19:32 | NUR ---
Complete ventilator circuit change due to soiling. Patient tolerated well. Patient affirms that he can now breathe better. ET tube secure, cuff inflated. SPO2: 96%
[2019-10-30] VITALS (60 sets, daily range): BP systolic 111–184; BP diastolic 47–93
[2019-10-30 05:26] LABS: ABG BASE EXCESS 4.9 mmol/L (-2.0-2.0); ARTERIAL BLOOD GAS PH 7.417 (7.35-7.45)
[2019-10-30 06:05] LABS: ALBUMIN 2.1 gm/dl (3.1-4.5); ALKALINE PHOSPHATASE 86 U/L (45-117); BUN 15 mg/dl (7-24); CHLORIDE 105 mmol/L (98-107); CREATININE 0.53 mg/dL (0.70-1.30); POTASSIUM 4.1 mmol/L (3.5-5.1); SGOT/AST 22 IU/L (3-35); SGPT/ALT 33 U/L (12-78); SODIUM 137 mmol/L (136-145); TOTAL PROTEIN 5.8 gm/dL (6.4-8.2)
[2019-10-30 06:13] LABS: BASO # 0.1 10*3/uL (0.0-0.1); BASO % 0.9 % (0.0-1.0); EOS # 0.5 10*3/uL (0.0-0.4); EOS % 6.9 % (1.0-4.0); HEMATOCRIT 33.7 % (42.0-52.0); LYMPH # 0.8 10*3/uL (1.3-4.4); LYMPH % 12.1 % (27.0-41.0); MEAN CELL VOLUME 97.4 fl (80.0-94.0); MEAN CORPUSCULAR HGB 31.2 pg (27.0-31.0); MEAN PLATELET VOLUME 10.7 fl (9.6-12.3); MONO # 0.5 10*3/uL (0.1-1.0); MONO % 7.9 % (3.0-9.0); NEUT # 4.8 10*3/uL (2.3-7.9); NEUT % 71.3 % (47.0-73.0); PLATELET COUNT AUTOMATED 286 10*3/uL (130-400); RED BLOOD COUNT 3.46 10*6/uL (4.50-5.90); RED CELL DISTRI WIDTH 13.7 % (0-14.5); WHITE BLOOD COUNT 6.7 10*3/uL (4.8-10.8)
[2019-10-30 08:07] LABS: ABG BASE EXCESS 4.5 mmol/L (-2.0-2.0); ARTERIAL BLOOD GAS PH 7.41 (7.35-7.45)
--- NOTE | 2019-10-30 10:00 | NUR ---
DIPRIVAN GTT TURNED OFF. IS VERY CALM AND COOPERATIVE
[2019-10-30 11:21] LABS: ABG BASE EXCESS 4.4 mmol/L (-2.0-2.0); ARTERIAL BLOOD GAS PH 7.437 (7.35-7.45)
--- NOTE | 2019-10-30 11:30 | NUR ---
DR. SANDY HERE TO SEE PATIENT.
--- NOTE | 2019-10-30 12:30 | NUR ---
LEVOPHED GTT TITRATED OFF. MAP 75-90'S.
--- NOTE | 2019-10-30 13:00 | NUR ---
PT PLACED ON CPAP 10/5 25% O2 PER . PT APPEARS TO BE JOLANTA CPAP WELL. NO COMPLAINTS OF SOB NOTED. ETT REMAINS INPLACE AND SECURED. ALARMS ARE AUDIBLE. NO SIGNS OF RES DISTRESS AT THIS TIME. WILL CONTINUE TO MONITOR.
--- NOTE | 2019-10-30 17:00 | NUR ---
INCONTINENT OF LARGE AMOUNT FORMED BM. TURNED AND REPOSITIONED ONTO BACK. ART LINE DRESSING WET. DRY DRESSING PLACED OVER ART LINE SITE.
[2019-10-30 17:24] LABS: ABG BASE EXCESS 3.8 mmol/L (-2.0-2.0); ARTERIAL BLOOD GAS PH 7.469 (7.35-7.45)
--- NOTE | 2019-10-30 20:47 | NUR ---
PT. RESTING IN BED WATCHING TV, AWAKE AND ALERT. NODS HEAD APPROPRIATELY IN RESPONSE TO QUESTIONS. LEFT IJ MLC INTACT. LEFT RADIAL ART ALSO ASYMPT. LUNGS DIMINISHED BILAT, PLSE OX 94% ON 25% FIO2, PT. IS CURRENTLY ON CPAP AT 10/5, TOLERATING WELL. ABDOMEN SOFT, NONDISTENDED AND NORMO. . TUBE FEEDINGS CONTINUE ORDERED VIA OGT, NO RESIDUAL WAS NOTED. SCD'S ON BILAT. FENTANYL CONTINUES AT 15MICS. PT. GIVEN ORAL MOUTH CARE AND SUCTIONED FOR SMALL AMT OF WHITE MUCOUS VIA ENDO AND CLEAR SECRETIONS ORALLY. GRISELDA ROCK RN
[2019-10-31] VITALS (21 sets, daily range): BP systolic 130–198; BP diastolic 52–93
[2019-10-31 04:59] LABS: BASO # 0.1 10*3/uL (0.0-0.1); BASO % 0.9 % (0.0-1.0); EOS # 0.5 10*3/uL (0.0-0.4); EOS % 7.4 % (1.0-4.0); HEMATOCRIT 33.9 % (42.0-52.0); LYMPH # 0.9 10*3/uL (1.3-4.4); LYMPH % 13.3 % (27.0-41.0); MEAN CORPUSCULAR HGB 31.8 pg (27.0-31.0); MEAN CORPUSCULAR HGB CONC 32.4 g/dl (33.0-37.0); MONO # 0.6 10*3/uL (0.1-1.0); MONO % 7.8 % (3.0-9.0); NEUT # 4.9 10*3/uL (2.3-7.9); NEUT % 69.7 % (47.0-73.0); PLATELET COUNT AUTOMATED 245 10*3/uL (130-400); RED BLOOD COUNT 3.46 10*6/uL (4.50-5.90); RED CELL DISTRI WIDTH 13.7 % (0-14.5)
[2019-10-31 05:17] LABS: ABG BASE EXCESS 3.6 mmol/L (-2.0-2.0); ARTERIAL BLOOD GAS PH 7.462 (7.35-7.45)
[2019-10-31 07:59] LABS: ALBUMIN 2.2 gm/dl (3.1-4.5); ALKALINE PHOSPHATASE 98 U/L (45-117); BUN 13 mg/dl (7-24); CHLORIDE 105 mmol/L (98-107); CREATININE 0.57 mg/dL (0.70-1.30); POTASSIUM 3.8 mmol/L (3.5-5.1); SGOT/AST 21 IU/L (3-35); SGPT/ALT 31 U/L (12-78); SODIUM 139 mmol/L (136-145); TOTAL PROTEIN 5.9 gm/dL (6.4-8.2); TRIGLYCERIDES 155 mg/dl (<150)
--- NOTE | 2019-10-31 11:02 | NUR ---
PT RESTING. PT HAD ANOTHER MUSHY BROWN BM. PT'S HME CHANGED BY RESP. THERAPIST. PT C/O GENERALIZED PAIN. INCREASED FENTANYL GTT AGAIN. NOW 25MCG/HR. WILL CONTINUE TO MONITOR PT.
--- NOTE | 2019-10-31 13:23 | NUR ---
DR SANDY IN TO SEE PT. UPDATED HIM ON PT'S CONDITION AND PLAN OF CARE. NEW ORDERS RECEIVED. ORDER RECEIVED TO EXTUBATE PT. IV FENTANYL GTT D/C'D PRIOR TO EXTUBATION PER ORDER OF DR SANDY. PT UPDATED ON PLAN TO EXTUBATE PT. PT NODDED UNDERSTANDING.
--- NOTE | 2019-10-31 14:53 | NUR ---
14:30 PT EXTUBATED WITHOUT INCIDENT PER DR SANDY. PT PLACED ON 4 L NC. PT SUCTIONED FOR SMALL SECRETIONS PRIOR TO EXTUBATION. NO STRIDOR. BBSs CLEAR AND DIMINISHED. VENT ON S/B. RESPS REGULAR AND UNLABORED. SPO2 97% RR 15-18. ABG TO FOLLOW.
[2019-10-31 16:28] LABS: ABG BASE EXCESS 3.4 mmol/L (-2.0-2.0); ARTERIAL BLOOD GAS PH 7.474 (7.35-7.45)
--- NOTE | 2019-10-31 17:00 | NUR ---
Pt resting. No complaints voiced at this time.
--- NOTE | 2019-10-31 17:35 | NUR ---
Patient extubated on physician's order. Nasal Cannula 4L. Pulse oximeter on with alarms set at 10% below patient's baseline. Pharyngeal reflex present prior to extubation. Patient encouraged to cough and deep breathe. Patient observed for skin color and temperature, monitor rhythm, respiratory rate and effort, and level of consciousness. Tube feedings continue at 60cc/hr. Patient tolerated procedure WELL.. GENTRY MAR
[2019-11-01] VITALS: BP 132/54
[2019-11-01 04:00] VITALS: BP 100/44
[2019-11-01 05:52] LABS: ALBUMIN 2.3 gm/dl (3.1-4.5); ALKALINE PHOSPHATASE 101 U/L (45-117); BUN 15 mg/dl (7-24); CHLORIDE 105 mmol/L (98-107); POTASSIUM 3.5 mmol/L (3.5-5.1); SGOT/AST 30 IU/L (3-35); SGPT/ALT 35 U/L (12-78); SODIUM 139 mmol/L (136-145); TOTAL PROTEIN 6.1 gm/dL (6.4-8.2)
[2019-11-01 06:03] LABS: BASO # 0.1 10*3/uL (0.0-0.1); EOS # 0.8 10*3/uL (0.0-0.4); HEMATOCRIT 35.1 % (42.0-52.0); LYMPH # 1.1 10*3/uL (1.3-4.4); LYMPH % 15.4 % (27.0-41.0); MEAN CELL VOLUME 98.3 fl (80.0-94.0); MEAN CORPUSCULAR HGB 31.9 pg (27.0-31.0); MEAN CORPUSCULAR HGB CONC 32.5 g/dl (33.0-37.0); MEAN PLATELET VOLUME 10.3 fl (9.6-12.3); MONO # 0.7 10*3/uL (0.1-1.0); NEUT # 4.3 10*3/uL (2.3-7.9); NEUT % 61.6 % (47.0-73.0); PLATELET COUNT AUTOMATED 284 10*3/uL (130-400); RED BLOOD COUNT 3.57 10*6/uL (4.50-5.90); RED CELL DISTRI WIDTH 13.8 % (0-14.5); WHITE BLOOD COUNT 6.9 10*3/uL (4.8-10.8)
[2019-11-01 08:00] VITALS: BP 128/54
--- NOTE | 2019-11-01 08:00 | NUR ---
PT AAOX3. VSS. RESP EASY. POX 94% ON 3L NC. LUNG BECK DIM. WITH A FEW SCATTERED RHONCHI THAT CLEARS WITH COUGHING. COUGH PRODUCTIVE OF CREAM COLORED SPUTUM WITH OCCASIONAL SMALL FLECKS OF BLOOD. OGT PLACEMENT VERIFIED WITH AN AIR BOLUS. TUBE FEEDING CONTINUE AT 60CC/HR. ABD. SOFT WITH ACTIVE BOWEL SOUNDS. GRIMM PATENT FOR LIGHT JERROD URINE. TRACED EDEMA NOTED TO PT'S HANDS AND LOWER LEGS. WOUND NOTED TO LEFT HEEL. PT STATES HE IS HUNGRY AND READY TO EAT. INFORMED PT WE HAVE TO WAIT FOR PT TO BE SEEN BY DR SANDY FIRST AND DR SANDY WILL DECIDE IF PT CAN EAT OR NOT. PT VERBALIZED UNDERSTANDING.
--- NOTE | 2019-11-01 10:19 | NUR ---
Spoke to Padmini, [facility] the [facility], regarding patient's who may need therapy at a facility prior to returning [facility] the [facility]. She states they have contracted therapy who are currently on hold due to the COVID but will resume at some point in time. She states the inmates need to be evaluated by PT while here in the hospital and then can resume therapy when they return to the facility. Hospitalist nurse director notified.
--- NOTE | 2019-11-01 11:50 | NUR ---
Spoke to Dr. Kathleen regarding assisted requesting patient have PT here and then have OP PT at the assisted. Spoke to Director of Rehab, Luis, who is going to coordinate with the PT that goes to the assisted to come to the 5th floor.
[2019-11-01 12:00] VITALS: BP 115/61
[2019-11-01 13:33] LABS: ABG BASE EXCESS 3.3 mmol/L (-2.0-2.0); ARTERIAL BLOOD GAS PH 7.479 (7.35-7.45)
--- NOTE | 2019-11-01 15:00 | NUR ---
PT TOLERATED CLEAR LIQUID DIET WELL. NGT D/C'D PER ORDER OF DR SNADY.
[2019-11-01 16:00] VITALS: BP 123/63
--- NOTE | 2019-11-01 16:56 | NUR ---
PT UP TO BSC THEN TO CHAIR WITH 3 ASSIST. PT VERY WEAK. LEFT RADIAL ART LINE D/C'D INTACT. MULTIPLE ATTEMPTS MADE FOR A PERIPHERAL IV SITE. LEFT IJ MLC DRESSING CHANGED.
[2019-11-01 20:00] VITALS: BP 128/60
--- NOTE | 2019-11-01 20:36 | NUR ---
PT. UP IN CHAIR, ASSISTED BACK TO BED WITH 3 ASSIST. TOLERATED WELL. GRIMM CATH DRAINING A GREEN/YELLOW URINE. LIJ MLC INTACT DEPENDENT EDEMA OF LEGS/ARMS NOTED. GENEALIZED WEAKNESS NOTED. LUNGS REMAINS DIMINISHED BILAT, PULSE OX 93% ON RA. GRISELDA ROCK RN
[2019-11-02] VITALS: BP 103/56
[2019-11-02 04:00] VITALS: BP 95/47
[2019-11-02 04:58] LABS: ARTERIAL BLOOD GAS PH 7.435 (7.35-7.45)
[2019-11-02 06:26] LABS: BASO # 0.1 10*3/uL (0.0-0.1); BASO % 0.7 % (0.0-1.0); EOS # 0.8 10*3/uL (0.0-0.4); EOS % 11.8 % (1.0-4.0); HEMATOCRIT 35.3 % (42.0-52.0); LYMPH # 0.9 10*3/uL (1.3-4.4); LYMPH % 13.5 % (27.0-41.0); MEAN CORPUSCULAR HGB 30.8 pg (27.0-31.0); MEAN CORPUSCULAR HGB CONC 31.7 g/dl (33.0-37.0); MEAN PLATELET VOLUME 9.9 fl (9.6-12.3); MONO # 0.7 10*3/uL (0.1-1.0); NEUT # 4.2 10*3/uL (2.3-7.9); NEUT % 63.3 % (47.0-73.0); PLATELET COUNT AUTOMATED 298 10*3/uL (130-400); RED BLOOD COUNT 3.64 10*6/uL (4.50-5.90); WHITE BLOOD COUNT 6.7 10*3/uL (4.8-10.8)
[2019-11-02 06:59] LABS: ALBUMIN 2.2 gm/dl (3.1-4.5); ALKALINE PHOSPHATASE 97 U/L (45-117); BUN 17 mg/dl (7-24); CHLORIDE 108 mmol/L (98-107); SGOT/AST 24 IU/L (3-35); SGPT/ALT 34 U/L (12-78); SODIUM 141 mmol/L (136-145); TOTAL PROTEIN 5.9 gm/dL (6.4-8.2)
[2019-11-02 07:55] VITALS: BP 113/61
--- NOTE | 2019-11-02 11:22 | NUR ---
Spoke to Farida and Luis from PT. Farida is going to do the PT evals as soon as she is fit tested. Hospitalist nurse director notified for PT orders and Dr. Kathleen notified of plan.
--- NOTE | 2019-11-02 12:50 | NUR ---
Occupational therapy orders received this date, 11/02/2019. Per discussion with Farida from case management, patient does not need an occupational therapy evaluation at this time. Will hold on occupational therapy until further notice from case management or hospitalist. Thank you. Marianne Weller, OTR/L
--- NOTE | 2019-11-02 13:54 | NUR ---
Awake and alert today, assisted up to chair, very weak, BM's x [address] Simmons and Frannie in to evaulate. MLC removed from LIJ pressure dressing applied.
--- NOTE | 2019-11-02 14:58 | NUR ---
[place] cath removed post bladder training.
--- NOTE | 2019-11-02 16:00 | NUR ---
PATIENT AWAKE, ALERT UP IN CHAIR. 02 IN USE VIA 2LNC. ASSISTED PATIENT UP TO BSC WITH 2 ASSIST. SMALL MUSHY BM. PT DENIES ANY PAIN/DISCOMFORT AT THIS TIME. WILL CONTINUE TO MONITOR.
--- NOTE | 2019-11-02 16:02 | NUR ---
PHYSICAL THERAPY Physical Therapy evaluation completed on 5E with full evaluation to follow. Moderate complexity PT evaluation per chart review and evaluation, [address]. Recommend physical therapy per plan of care and Continued PT services upon discharge. Thank you for this referral. Farida Villarreal,PT,DPT
[2019-11-02 16:06] VITALS: BP 112/58
--- NOTE | 2019-11-02 18:40 | NUR ---
PT VOIDING WITHOUT ANY DIFFICULTY SINCE GRIMM REMOVAL. PT VOIDED 150CC PER SHIFT. WILL CONTINUE TO MONITOR OUTPUT.
--- NOTE | 2019-11-02 19:48 | NUR ---
24 HR chart check completed.
[2019-11-02 20:00] VITALS: BP 121/56
--- NOTE | 2019-11-02 20:15 | NUR ---
PATIENT RESTING IN BED. DENIES ANY COMPLAINTS. 2L NC IN USE. PULSE OX 97%. RESPS EASY AND REGULAR. VSS. ASSESSMENT COMPLETE. CALL LIGHT WITHIN REACH. WILL CONTINUE TO MONITOR.
[2019-11-03] VITALS: BP 104/62
--- NOTE | 2019-11-03 | NUR ---
PATIENT RESTING IN BED. DENIES ANY COMPLAINTS. VSS. IV VANC INFUSING PER ORDER. CALL LIGHT WITHIN REACH. WILL MONITOR.
[2019-11-03 06:09] LABS: ABG BASE EXCESS 0.8 mmol/L (-2.0-2.0); ARTERIAL BLOOD GAS PH 7.433 (7.35-7.45)
[2019-11-03 06:38] LABS: BASO # 0.1 10*3/uL (0.0-0.1); BASO % 1.2 % (0.0-1.0); EOS # 0.9 10*3/uL (0.0-0.4); EOS % 15.5 % (1.0-4.0); HEMATOCRIT 35.3 % (42.0-52.0); LYMPH % 17.7 % (27.0-41.0); MEAN CELL VOLUME 98.6 fl (80.0-94.0); MEAN CORPUSCULAR HGB 31.3 pg (27.0-31.0); MEAN CORPUSCULAR HGB CONC 31.7 g/dl (33.0-37.0); MEAN PLATELET VOLUME 9.6 fl (9.6-12.3); MONO # 0.6 10*3/uL (0.1-1.0); MONO % 10.2 % (3.0-9.0); NEUT # 3.1 10*3/uL (2.3-7.9); NEUT % 54.5 % (47.0-73.0); PLATELET COUNT AUTOMATED 294 10*3/uL (130-400); RED BLOOD COUNT 3.58 10*6/uL (4.50-5.90); WHITE BLOOD COUNT 5.7 10*3/uL (4.8-10.8)
[2019-11-03 07:05] LABS: ALBUMIN 2.3 gm/dl (3.1-4.5); ALKALINE PHOSPHATASE 99 U/L (45-117); BUN 14 mg/dl (7-24); CHLORIDE 109 mmol/L (98-107); CREATININE 0.63 mg/dL (0.70-1.30); POTASSIUM 4.2 mmol/L (3.5-5.1); SGOT/AST 23 IU/L (3-35); SGPT/ALT 33 U/L (12-78); SODIUM 142 mmol/L (136-145)
[2019-11-03 08:00] VITALS: BP 113/68
--- NOTE | 2019-11-03 08:55 | NUR ---
Faxed PT eval to Padmini, coordinator at [facility]
--- NOTE | 2019-11-03 10:36 | NUR ---
Spoke to Padmini, medical coordinator at the assisted, regarding possibility of patient returning over the weekend and she states as they have a skeleton crew on the weekend they would not take the patient back over the weekend it would have to wait until the beginning of next week. Briefly went over patient's progress during stay, pulse ox, and PT eval. Explained he is ambulating with a walker but will need continued PT services upon return to the assisted. She states she is going to have to pass some things by some other people and think outside the box to come up with alternative plans. She states she has to make some phone calls and will return CM call. Dr. Fraser notified.
--- NOTE | 2019-11-03 10:36 | NUR ---
Spoke to Padmini, medical coordinator at the jail, regarding possibility of patient returning today to the jail. Briefly went over patient's progress during stay, pulse ox, and PT eval. Explained he is ambulating with a walker but will need continued PT services upon return to the jail. Discussed the possibility of discharge over the weekend and she states as they have a skeleton crew on the weekend they would not take the patient back over the weekend it would have to wait until beginning of next week. She states she is going to have to pass some things by some other people and think outside the box to come up with alternative plans. She states she has to make some phone calls and will return CM call. Dr. Fraser notified.
--- NOTE | 2019-11-03 10:46 | NUR ---
Received call from Dr. Anderson from [facility] regarding discharge planning. She would like the patient to stay here at the hospital until they are appropriate to return to the long term. She would like them to continue to get therapy services here at the hospital. If we are unable to keep them here they would have to look at the possibility of [facility]. Dr. Fraser, CNO, Director Service, and Director of Rehab notified. Awaiting final decision.
--- NOTE | 2019-11-03 11:51 | NUR ---
Spoke to Director of Rehab regarding inpatient physical therapy continuing to work with patient and he is agreeable to have inpatient therapy continue. Spoke to business office, CNO, Restaurant Delivery Driver, Director Inpatient Services, and Dr. Fraser. Dr. Fraser stated it was ok for therapy to work with the patients twice daily. Therapy notified.
[2019-11-03 12:00] VITALS: BP 118/68
--- NOTE | 2019-11-03 15:41 | NUR ---
PHYSICAL THERAPY Physical therapy treatment complete, Total time: 69 minutes. Patient supine in bed and agreeable to skilled PT services. Patient performed supine bed exercises including SLR 2x10 bilaterally prior to sitting up. Patient on 2L O2 throughout PT session. SpO2 >90% throughout supine and EOB exercises and sit to stand activities. Patient performed bed mobility to sit EOB with Franco. Once sitting EOB, patient performed UE overhead activity x10 with increased deep breathing with arms overhead/exhale with lowering of arms to increase airflow. Patient performed seated alternating marching 2x10, bilaterally. Sit to stand from EOB completed. Initial sit to stand ModA x1 at FWW. Following stands, patient educated on sequence to improve efficiency to stand. Educated to lean forward and press up from bed to stand. Patient able to complete stands with Franco x1. Able to complete 3 sets of 2 repetitions each, totaling 6 stands. Patient able to stand for 10 seconds prior to sitting. After ample rest period, patient gait trained into bathroom, 10'x1 and transferred on/off commode. Franco x2 sit to stand from commode, which is lower surface than EOB. Patient gait trained 10'x1 to return to sitting EOB. Following gait training and toilet transfer, SpO2 desaturation to 83%. SpO2 increased to 90% within less than one minute sitting EOB. Patient able to return to supine position with CGA. Patient supine, comfortable, call [place] within reach at end of session. Thank you. Farida Villarreal,PT,DPT.
[2019-11-03 16:00] VITALS: BP 108/78
[2019-11-03 20:00] VITALS: BP 132/67
--- NOTE | 2019-11-03 20:24 | NUR ---
24 HR chart check completed.
[2019-11-04] VITALS: BP 112/61
--- NOTE | 2019-11-04 05:58 | NUR ---
ANGELA JACQUES [id number] Please refer to the physician's history and physical for past medical history, comorbid conditions, and allergies. Diagnosis: COVID-19 INFECTION George Score: 15,AT RISK WOUND DESCRIPTIONS: Wound Number: 1 Location of the wound: left lateral heel Type of wound: DTI Size: 2.5cm x 2.5cm x <0.1cm Tunneling: none Undermining: none Sinus Tract: none Presence of Exudate: none Amount: None Color: Purple, brown, dark red Odor: None Periwound Skin Appearance: Normal Wound edges: approximated Pain (associated with wound): none at time of assessment How does patient state this happened? pt unable to state how this happened Patient buttocks is red and blanchable. No open areas noted at time of assessment. No drainage noted at time of assessment. Patient stated that he believes he had something upon admission but isn't exactly sure. Surface the patient is resting on: Position Pro SKIN PREVENTION RECOMMENDATION: 1. Pressure redistribution support surface as appropriate 2. Elevate heels 3. Remove boots/TEDS every shift and reapply 4. Head of bed 30 degrees as tolerated 5. Assess nutrition and hydration 6. Manage moisture 7. Avoid the use of containment devices while in bed 8. Use absorptive products on surfaces limit layers of linens on bed 9. Turn and reposition every 1-2 hours in bed and every 1 hour in chair as tolerated 10. Weight shifts every 15 minutes while up in chair 11. Offloading with pillows or device to keep heels elevated off bed 12. Monitor skin at least every shift 13. Inspect under medical devices twice a day WOUND TREATMENT RECOMMENDATIONS: Continue DTI guidelines to left lateral heel Continue heel raiser pro boots to bilateral feet while in bed Cleanse buttocks with soap and water and apply hydraguard every shift and prn for soiling. Wheelchair cushion when oob.
[2019-11-04 06:03] LABS: HEP B CORE AB, IGM Negative (Negative); HEPATITIS B SURFACE AG Negative (Negative); HEPATITIS C VIRUS ANTIBODY <0.1 s/co (0.0-0.9)
--- NOTE | 2019-11-04 06:07 | NUR ---
ANGELA JACQUES [id number] Please refer to the physician's history and physical for past medical history, comorbid conditions, and allergies. 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 pt unable to state how this happened Wound Number: 2 Location of the wound: chin Type of wound: MASD ( due to execessive secretions from mouth and nose ) Thickness: Full Size: 0.5cm x 0.5cm x 0.1cm Tunneling: none Undermining: none Sinus Tract: none Presence of Exudate: none Amount: none Color: Red Odor: None Periwound Skin Appearance: Normal Wound edges: approximated Pain (associated with wound): none at time of assessment How does patient state this happened? pt unable to state how this happened Wound Number:3 Location of the wound: right cheek Type of wound: medical assisting instructor related injury Thickness: Partial Size: 0.1cm x 0.2cm x 0.1cm Tunneling: none Undermining: none Sinus Tract: none Presence of Exudate: none Amount: none Color: [place] Odor: None Periwound Skin Appearance: Normal Wound edges: approximated Pain (associated with wound): none at time of assessment How does patient state this happened? pt unable to state how this happened Wound Number: 4 Location of the wound: left side of nose Thickness: Partial Size: 0.1cm x 0.3cm x 0.1cm Tunneling: none Undermining: none Sinus Tract: none Presence of Exudate: none Amount: none Color: Red Odor: None Periwound Skin Appearance: Edema Wound edges: approximated Pain (associated with wound): none at time of assessment How does patient state this happened? pt unable to state how this happeend Wound Number: 5 Location of the wound: left plantar aspect of foot Thickness: Full Size: 2.1cm x 2.5cm x <0.1cm Tunneling: none Undermining: none Sinus Tract: none Presence of Exudate: none Amount: None Color: Black Odor: None Periwound Skin Appearance: Normal Wound edges: intact blood filled blister Pain (associated with wound): none at time of assessment How does patient state this happened? pt unable to state how this happend Wound Number: 6 Location of the wound: right side of scrotum. Area is pink and blanchable at time of assessment. No open areas noted at time of assessment. No drainage noted at time of assessment. Wound Number: 7 Location of the wound: right hip. Area is pink and blanchable at time of assessment. No open areas noted at time of assessment. No drainage noted at time of assessment. Wound Number: 8 Location of the wound: left buttocks was unable to see at this time due to patient not wanting to get out of the chair for evaluation. Surface the patient is resting on: [facility]VENTION RECOMMENDATION: 1. Pressure redistribution support surface as appropriate 2. Elevate heels 3. Remove boots/TEDS every shift and reapply 4. Head of bed 30 degrees as tolerated 5. Assess nutrition and hydration 6. Manage moisture 7. Avoid the use of containment devices while in bed 8. Use absorptive products on surfaces limit layers of linens on bed 9. Turn and reposition every 1-2 hours in bed and every 1 hour in chair as tolerated 10. Weight shifts every 15 minutes while up in chair 11. Offloading with pillows or device to keep heels elevated off bed 12. Monitor skin at least every shift 13. Inspect under medical devices twice a day WOUND TREATMENT RECOMMENDATIONS: Continue heel raiser pro boots to bilateral feet while in bed Wheelchair cushion when oob. Continue full thickness guidelines to left plantar foot. d/c partial thickness guidelines
[2019-11-04 08:00] VITALS: BP 119/61
--- NOTE | 2019-11-04 08:15 | NUR ---
PT SITTING UP IN RECLINER CHAIR. RESP-EASY AND REGULAR. OXYGEN IN USE. NO C/O AT THIS TIME. CALL LIGHT IN REACH. SEE SHIFT ASSESSMENT.
--- NOTE | 2019-11-04 09:10 | NUR ---
PT TOLERATED ROUTINE MEDICATIONS EATING BREAKFAST. SITTING UP IN RECLINER. CALL LIGHT IN REACH.
--- NOTE | 2019-11-04 10:07 | NUR ---
DR. MODI ON FLOOR TO SEE PT.
--- NOTE | 2019-11-04 11:20 | NUR ---
PHYSICAL THERAPY Physical therapy treatment complete. Total treatment time: 72 minutes. Patient seated in recliner chair at start of session and agreeable to skilled PT services. Patient on 2L O2 throughout PT this date. SpO2 intially 89% sitting in recliner at start of session. SpO2 ranged from 89% to 97% throughout treamtent. Mild complaint of shortness of breath following sit to stand activities, and gait training, but good O2 levels throughout. In recliner, patient performed SLR 2x10 bilaterally. Patient then transferred to standing position from recliner (ModA and FWW), and gait trained from the chair to sit EOB. Patient performed sit to stand 3 sets of 3 repetitions, totaling 9 stands this date, which is increased from 6 stands on 11/03/2019. Franco for sit to stand with verbal cueing to press up from the bed and lean forward prior to standing up at FWW. Less assistance required this date. Patient gait trained in room with FWW 12'x5 (60') with seated rest breaks in between. Franco sit to stand transfer each time following initial sit to stand which was ModA. At end of session, patient gait trained x10' into the bathroom, transferred on/off toilet requiring Franco. Patient gait trained from bathroom to bed, x15' and returned to supine position in bed. Patient fatigued at end of session, and required ample rest throughout session this date due to decreased endurace. Patient comfortable, call [place] within reach. Thank you. Farida Villarreal,PT,DPT
--- NOTE | 2019-11-04 11:30 | NUR ---
DR. SANDY ON THE FLOOR TO SEE PT.
--- NOTE | 2019-11-04 11:40 | NUR ---
PHYSICAL THERAPY IN ROOM WITH PT.
--- NOTE | 2019-11-04 14:45 | NUR ---
PHYSICAL THERAPY Physical therapy treatment complete. Total treatment time: 47 minutes. Patient supine in bed upon arrival and agreeable to skilled PT services. Patient performed bed mobility to sit EOB with CGA. Patient sat EOB without LOB to perform seated alternating marching, 2x10, LAQ with 5second hold x10 each, seated hip abduction x10 each. Mild SOB noted, SpO2 at 92% on 2L O2. SpO2 up to 97% prior to gait training. Transfers from bed and recliner Franco this session. Transfer from [facility]. Patient gait trained 10'x1 with FWW and CGA. C/o of dizziness. Seated rest break given. SpO2 88%. Patient gait trained 10'x1 back to bed with mild SOB, SpO2 88%. SpO2 raised to 97% prior to gait training into bathroom. Patient walked with FWW and CGA 15'x1, transferred on/off toilet [facility], gait trained 5'x1 to chair, SpO2 87%. After coming up to 95%, patient gait trained 10'x1 to return to sitting EOB. Patient SpO2 dropped to 86%. SpO2 ranging from 86% to 97% throughout treatment session. Verbal cueing to breathe slowly in through nose/out through mouth, and to not hold breath with exercises or gait training. Patient verbalized understanding. Patient returned to supine position in bed, comfortable, call [place] within reach. SpO2 95% on 2L O2 at end of session. Thank you. Farida Villarreal,PT,DPT.
--- NOTE | 2019-11-04 14:45 | NUR ---
PHYSICAL THERAPY Physical therapy treatment complete. Total treatment time: 47 minutes. Patient supine in bed upon arrival and agreeable to skilled PT services. Patient performed bed mobility to sit EOB with CGA. Patient sat EOB without LOB to perform seated alternating marching, 2x10, LAQ with 5second hold x10 each, seated hip abduction x10 each. Mild SOB noted, SpO2 at 92% on 2L O2. SpO2 up to 97% prior to gait training. Patient gait trained 10'x1 with FWW and CGA. C/o of dizziness. Seated rest break given. SpO2 88%. Patient gait trained 10'x1 back to bed with mild SOB, SpO2 88%. SpO2 raised to 97% prior to gait training into bathroom. Patient walked with FWW and CGA 15'x1, transferred on/off toilet, gait trained 5'x1 to chair, SpO2 87%. After coming up to 95%, patient gait trained 10'x1 to return to sitting EOB. Patient SpO2 dropped to 86%. SpO2 ranging from 86% to 97% throughout treatment session. Verbal cueing to breathe slowly in through nose/out through mouth, and to not hold breath with exercises or gait training. Patient verbalized understanding. Patient returned to supine position in bed, comfortable, call [place] within reach. SpO2 95% on 2L O2 at end of session. Thank you. Farida Villarreal,PT,DPT.
[2019-11-04 16:00] VITALS: BP 119/66
--- NOTE | 2019-11-04 20:45 | NUR ---
PATIENT RESTING COMFORTABLY IN BED. DENIES ANY SHORTNESS OF BREATH AT REST, ONLY EXERTIONAL. P.O. 96% ON 2L NC. PRODUCTIVE COUGH NOTED ON ASSESSMENT. DENIES PAIN AT THIS TIME. ASSISTED TO THE RESTROOM WITH WALKER, AND PATIENT TOLERATED WELL. SOME SHORTNESS OF BREATH NOTED, PATIENT STILL VERY WEAK. WILL CONTINUE TO MONITOR PATIENT.
[2019-11-05] VITALS: BP 113/68
--- NOTE | 2019-11-05 07:00 | NUR ---
ARRIVED ON SHIFT, REPORT RECEIVED FROM OFF GOING NURSE, ASSUMED CARE. PATIENTS BED IN LOW POSITION, SIDE RAILS UP X 2, CALL LIGHT WITHIN REACH.
[2019-11-05 08:00] VITALS: BP 134/97
--- NOTE | 2019-11-05 11:25 | NUR ---
PHYSICAL THERAPY Physical therapy treatment session complete. Total treatment time: 63 minutes. Patient supine in bed upon entry to room and agreeable to skilled PT services. Patient performed SLR 2x10 bilaterally prior to sitting EOB with SBA. Patient on 2L02 via NC throughout session. SpO2 ranging from 89-97% throughout treamtent. Once sitting EOB, patient performed 3 sets of 5 repetitions of sit to stands. CGA required for sit to stands this date. Patient progressed from 9 total sit to stands 11/04/2019 to 15 total sit to stands this date. SpO2 94% and above with sit to stand activities this date. Patient required rest breaks between each set of 5 sit to stands. Patient gait trained 16'x3 with FWW and CGA. After first session, SpO2 dropped to 89% but came up to >90 within 1 minute after sitting to rest. Second and third attempts to gait did not cause O2 levels to drop below 92% on 2L O2 via NC. Ample rest given between each gait session. At end of session, patient gait trained from bed to bathroom, 15'x1 with FWW and CGA. Transferred onto toilet. Patient in bathroom at end of session, preparing for hygiene/grooming activities. DEBONING TEAM LEADER Jud in room with patient at end of PT session. Plan to continue skilled PT services per POC to improve endurance and functional mobility. Thank you. Farida Villarreal,PT,DPT.
[2019-11-05 16:00] VITALS: BP 126/64
--- NOTE | 2019-11-05 18:06 | NUR ---
Shift chart check completed.
[2019-11-05 22:02] LABS: TB1 Ag VALUE 0.13 IU/mL (.)
--- NOTE | 2019-11-06 07:00 | NUR ---
ARRIVED ON SHIFT, REPORT RECEIVED FROM OFF GOING NURSE, ASSUMED CARE OF PT.
[2019-11-06 08:00] VITALS: BP 125/65
--- NOTE | 2019-11-06 10:50 | NUR ---
PHYSICAL THERAPY Physical therapy treatment complete. Total treatment time: 60 minutes. Patient supine in bed upon arrival and agreeable to skilled PT services. SpO2 89% on 2L via NC in supine position. Patient performed SLR 2x10 bilaterally prior to transitioning to from supine to sitting EOB. Once sitting EOB, patient complained of chest pain. Dr. Kathleen in room and aware of complaint. Nurse Angie in room and vitals taken. HR 74, BP 110/64, SpO2 94% on 2L via NC. Patient performed seated exercises bilaterally, including alternating marching 2x10 and LAQ with 5 second hold 2x10. SpO2 ranging from 89-95 throughout PT session this date. Patient performed 5x sit to stands x4 with CGA, totaling 20 stands with rest in between each set of 5. SpO2 90-92% following sit to stand activity. Patient requiring ~3 minutes rest before gait session. Mild complaint of dizziness throughout PT session this date, but patient attributing this to not having his glasses and being in a "blur." Gait this date with CGA for safety and O2 tube management. Patient gait trained 32'x3 with FWW and CGA with ~2 minute seated rest break between each session. total gait this date, 96'. Fatigue, SOB noted throughout session. At end of session, patient returned to supine position, comfortable, call [place] within reach. Plan to continue skilled PT services to improve endurance, functional mobility, and safety. Thank you. Farida Villarreal,PT,DPT.
--- NOTE | 2019-11-06 11:07 | NUR ---
PATIENT C/O OF CHEST PAIN DR. MODI AWARE MEDICATED WITH TYLENOL, SEE VS WNL
[2019-11-06 11:08] VITALS: BP 110/64
--- NOTE | 2019-11-06 12:07 | NUR ---
PATIENT DENIES ANY FURTHER C/O CHEST PAIN, CONTINUE TO BE SHORT OF BREATH WITH INCREASED ACTIVITY.
[2019-11-06 13:41] LABS: ALBUMIN 2.4 gm/dl (3.1-4.5); ALKALINE PHOSPHATASE 109 U/L (45-117); BUN 11 mg/dl (7-24); CHLORIDE 110 mmol/L (98-107); CREATININE 0.65 mg/dL (0.70-1.30); SGOT/AST 26 IU/L (3-35); SGPT/ALT 35 U/L (12-78); SODIUM 138 mmol/L (136-145); TOTAL PROTEIN 6.1 gm/dL (6.4-8.2)
[2019-11-06 13:43] LABS: TROPONIN I < 0.015 ng/ml (<0.045)
--- NOTE | 2019-11-06 13:46 | NUR ---
DR. MODI ADVISED OF DIFFICULTY IN OBTAINING BLOOD FOR PT, ORDER RECEIVED TO CANCEL THIS LAB.
[2019-11-06 14:03] LABS: HEMATOCRIT 35.6 % (42.0-52.0); MEAN CELL VOLUME 95.2 fl (80.0-94.0); MEAN CORPUSCULAR HGB 31.6 pg (27.0-31.0); MEAN CORPUSCULAR HGB CONC 33.1 g/dl (33.0-37.0); MEAN PLATELET VOLUME 10.1 fl (9.6-12.3); PLATELET COUNT AUTOMATED 334 10*3/uL (130-400); RED BLOOD COUNT 3.74 10*6/uL (4.50-5.90); RED CELL DISTRI WIDTH 14.2 % (0-14.5); WHITE BLOOD COUNT 7.2 10*3/uL (4.8-10.8)
[2019-11-06 14:25] LABS: BASOPHILS 2 % (0-1); PLATELET SUFFICIENCY NORMAL (NORMAL); TOTAL CELLS COUNTED 100 #CELLS
[2019-11-06 16:00] VITALS: BP 112/56
--- NOTE | 2019-11-06 18:27 | NUR ---
Shift chart check completed.
[2019-11-06 20:35] VITALS: BP 118/58
--- NOTE | 2019-11-06 20:35 | NUR ---
PATIENT AWAKE AND ALERT SITTING AT THE SIDE OF HIS BED. PATIENT AMBULATED TO BATHROOM WITH WHEELED WALKER- TOLERATED WELL. PATIENT SOB ON EXERTION, 2LNC ON. PATIENT DENIES ANY PAIN AND HAS NO COMPLAINTS AT THIS TIME. SEE VITALS AND SHIFT ASSESSMENT.
[2019-11-07] VITALS: BP 102/62
--- NOTE | 2019-11-07 01:44 | NUR ---
PATIENT RESTING WITH EYES CLOSED. RESPIRATIONS EASY AND UNLABORED. CALL LIGHT IN REACH. WILL MONITOR.
[2019-11-07 06:15] LABS: BASO # 0.1 10*3/uL (0.0-0.1); BASO % 1.1 % (0.0-1.0); EOS # 0.8 10*3/uL (0.0-0.4); EOS % 11.9 % (1.0-4.0); HEMATOCRIT 38.4 % (42.0-52.0); LYMPH # 1.3 10*3/uL (1.3-4.4); LYMPH % 19.6 % (27.0-41.0); MEAN CELL VOLUME 97.7 fl (80.0-94.0); MEAN CORPUSCULAR HGB 30.8 pg (27.0-31.0); MEAN CORPUSCULAR HGB CONC 31.5 g/dl (33.0-37.0); MEAN PLATELET VOLUME 9.2 fl (9.6-12.3); MONO # 0.6 10*3/uL (0.1-1.0); MONO % 9.1 % (3.0-9.0); NEUT # 3.7 10*3/uL (2.3-7.9); NEUT % 57.8 % (47.0-73.0); PLATELET COUNT AUTOMATED 328 10*3/uL (130-400); RED BLOOD COUNT 3.93 10*6/uL (4.50-5.90); RED CELL DISTRI WIDTH 14.3 % (0-14.5); WHITE BLOOD COUNT 6.4 10*3/uL (4.8-10.8)
[2019-11-07 06:44] LABS: ALBUMIN 2.6 gm/dl (3.1-4.5); ALKALINE PHOSPHATASE 121 U/L (45-117); BUN 9 mg/dl (7-24); CHLORIDE 109 mmol/L (98-107); CREATININE 0.64 mg/dL (0.70-1.30); SGOT/AST 27 IU/L (3-35); SGPT/ALT 37 U/L (12-78); SODIUM 142 mmol/L (136-145); TOTAL PROTEIN 6.5 gm/dL (6.4-8.2)
[2019-11-07 06:47] LABS: POTASSIUM 4.5 mmol/L (3.5-5.1)
[2019-11-07 08:00] VITALS: BP 125/66
--- NOTE | 2019-11-07 08:30 | NUR ---
Patient resting quietly with no c/o discomfort. Respirations easy and regular on O2. Vital signs stable. No overt distress. ARMIN BARRY R
--- NOTE | 2019-11-07 09:13 | NUR ---
PHYSICAL THERAPY Physical therapy treatment session complete. Total treatment time: 40 minutes. Patient supine in bed upon arrival and agreeable to skilled PT session. Patient performed SLR x10 bilaterally prior to sitting EOB. SpO2 97% on 2L via NC at start of session. Patient performed seated alternating marching x20 bilaterally while sitting EOB. Patient performed sit to stand activities from EOB. Able to perform sit to stand x10 with SBA. SOB following, SpO2 92%. Patient rested for ~3 minutes at EOB. Able to perform second set of sit to stand x10 with SBA. Increased SOB following, SpO2 94%. Patient gait trained from EOB to bathroom 15'x1, transferred on/off commode with CGA BUE on bar on left of commode. Patient gait trained from bathroom back to bed, 15'x1. Once sitting EOB, SpO2 at 89% on 2L via NC. SpO2 came up to 92% within ~30 seconds. Patient rested sitting at EOB for ~3 minutes. Third set of x10 sit to stand performed with CGA. Patient fatigued and SOB following. SpO2 at 92% on 2L O2 at end of session. Patient sitting up on EOB with breakfast tray. Education to use [place] if he needs to walk to bathroom. Patient verbalized understanding. Patient remained sitting EOB, tray table in place, call [facility] within reach. Plan to continue to progress endurance and functional mobility. Thank you. Farida Villarreal,PT,DPT.
--- NOTE | 2019-11-07 09:18 | NUR ---
DR URENA'S OF NOTIFIED OF CONSULT.
--- NOTE | 2019-11-07 13:20 | NUR ---
PHYSICAL THERAPY Physical therapy treatment session complete. Total treatment time: 65 minutes. Patient sitting EOB upon arrival and agreeable to skilled PT services. Patient transferred to standing at FWW with SBA and gait trained to bathroom with FWW and SBA, 15'x1. Patient transferred on/off commode with CGA and use of BUE at bar to left. Patient gait trained back to bed 15'x1, rested for ~2 minutes. SpO2 97% on 2L O2 via NC. Patient gait trained 40'x1 with FWW, SBA, and multiple turns, with no LOB. Rest break ~2 minutes prior to walking 40'x1 with FWW with SBA, multiple turns and no LOB. Patient rested ~2 minutes. Gait training using handheld Franco without use of FWW performed: 20'x1, rest ~2 minutes, 40'x 1, rest ~2 minutes, 40'x1, rest ~2 minutes. Franco required with handheld gait and no AD this date for increased safety and O2 management. mild LOB with turns using no AD. SpO2 94-97% with gait training this date on 2L O2 via NC . Following gait, performed sit to stand endurance training. Patient performed x10 sit to stand at EOB with SBA. SOB, fatigue, SpO2 88% following sit to stands. Patient rested ~3 minutes sitting EOB, SpO2 up to 94%. Performed x10 sit to stand at EOB with continued SOB, fatigue, SpO2 at 88%. SpO2 back up to >90% within 30 seconds. Patient gait trained 15'x1 to bathroom with FWW and SBA, stood at sink to brush teeth, and gait trained back to bed 15'x1 with FWW and SBA. Patient returned to supine position in bed, comfortable, call [place] within reach. Plan to continue per POC to progress gait without AD, endurance, and functional mobility. Thank you. Farida Villarreal,PT,DPT.
[2019-11-07 16:00] VITALS: BP 103/63
--- NOTE | 2019-11-07 18:21 | NUR ---
RECEIVED CARDIAC HISTORY INFO REQUESTED BY DR VIDAL. INFO PLACED ON CHART.
[2019-11-07 21:00] VITALS: BP 102/59
--- NOTE | 2019-11-07 21:25 | NUR ---
DR ARREDONDO MADE AWARE OF PATIENT'S HEART RATE AND BLOOD PRESSURE. STATES TO GIVE SCHEDULED METOPROLOL.
--- NOTE | 2019-11-08 04:24 | NUR ---
PT ASLEEP IN BED, RESPIRATIONS EASY. NO S/S OF DISTRESS NOTED. WILL MONITOR. CALL LIGHT IN REACH.
--- NOTE | 2019-11-08 05:09 | NUR ---
24 HR chart check completed.
[2019-11-08 06:00] VITALS: BP 100/52
--- NOTE | 2019-11-08 07:02 | NUR ---
PT ASSISTED UP TO BATHROOM AND BACK INTO BED. VERY SOB WITH EXERTION. POX TAKEN- 82% ON 2L NC. PT BREATHING THROUGH MOUTH. O2 TURNED UP TO 5L AND PT ENCOURAGED TO BREATHE THROUGH NOSE AND OUT THROUGH MOUTH. POX RETURNED TO 92% ON 5L NC. O2 TURNED BACK DOWN TO 2L. POX 95% ON 2L AT PRESENT TIME. OTHER VITAL SIGNS STABLE. WILL MONITOR. CALL LIGHT LEFT IN REACH. PT HAD ONE BM AND ONE UNMEASURED URINE OUTPUT.
[2019-11-08 08:00] VITALS: BP 103/65
--- NOTE | 2019-11-08 08:30 | NUR ---
Patient resting in bed. Respirations easy and regular on 2L O2. Pt states he had an episode of increased SOB overnight with ambulation. He states also that he coughed more overnight. He states he wasn't able to turn as his left arm is shackled to bed. Brusing is noted to the shackled area. pt is able to move fingers and has adequate cap refill. Edema noted to BLE. +PPP. Pt denies pain. Call light in reach.Vital signs stable. No overt distress. Will monitor ARMIN BARRY
--- NOTE | 2019-11-08 10:35 | NUR ---
PHYSICAL THERAPY [facility]. Total treatment time: 70 minutes. Patient supine in bed upon arrival and agreeable to skilled PT services. Patient SpO2 93% on 2L via NC at start of PT session. Patient performed 3x10 SLR and then sat up on EOB. Sit to stand x10 performed. SOB and fatigue following, 88% SpO2 on 2L via NC. Up to >90% after ~1 minute sitting EOB. Patient performed set two of Sit to stand x10. SpO2 87% on 2L via NC, SpO2 up to 92% after sitting EOB ~1 minute. Verbal cueing and education to relax shoulders and breathe deeply in through nose, out through mouth. Patient verbalized and demonstrated understanding. Continual reminders needed throughout session to improve O2 saturation. Patient performed third set of sit to stand x10. Starting at 97% on 2L O2 via NC and decreased to 92% this session. Patient sat EOB to rest ~3 minutes prior to fourth set of sit to stand activity. Sit to stand x6, very short of breath, 88% SpO2 via NC on 2L O2. Patient rested ~1 minute. Completed sit to stand x4, SpO2 at 96% on 2L O2 at end of sit to stand activity. Seated rest ~3 minutes sitting EOB. Patient gait trained in room, 40'x1 with FWW and CGA. 91% SpO2 on 2L via NC. Patient rested ~2 minutes. Gait 35'x1 from bed/back then from bed to bathroom. Transfer on/off commode with CGA. Stood at sink to brush teeth. Gait trained back to bed 15'x1 with FWW and CGA. At end of session, patient returned to supine position, comfortable and call [place] within reach. Plan to progress endurance, strength, and functional mobility to return to PLOF. Thank you. Farida Villarreal,PT,DPT.
--- NOTE | 2019-11-08 10:59 | NUR ---
Spoke to Padmini, medical coordinator, at the [facility] regarding possibility of OP heart cath if needed. She states they are able to provide those services to patients. They normally go to [place] under the services of Dr. Kashif Flor. At this time if patient would need an OP heart cath she is unsure when that could be arranged with the pandemic. Explained patient is going to have a ischemic work-up here at the hospital and will discuss further after those results have come back. She will also speak to Dr. Anderson regarding above.
--- NOTE | 2019-11-08 11:15 | NUR ---
Dr Prince on unit and requested to speak with pt via phone as he did yesterday. This nurse requested that the guard go in, as pt was going to speak on the phone. (Per the guards from yesterday stated that they had to do) Guard Officer Jesus on duty states "I don't need to go in there for that" This nurse stood in room while pt spoke with Dr Prince and plan of care was reviewed, pt states understanding. Phone removed by this nurse.
--- NOTE | 2019-11-08 12:30 | NUR ---
New guard in to see pt and shackle chain length was increased.
--- NOTE | 2019-11-08 14:00 | NUR ---
PHYSICAL THERAPY Physical therapy treatment session complete. Total treatment time: 70 minutes. Patient supine in bed upon arrival and agreeable to skilled PT services. SpO2 99% on 2L via NC. Patient performed bed mobility to sit EOB, transferred to standing position and gait trained 40'x3 with FWW and CGA. Seated rest break in between each session. SpO2 94% following gait this date. Patient returned to sitting EOB, performed sit to stand 3 sets x10 each time. SpO2 89% following x10 sit to stand each session. Up to 92% or greater after ~1 minute. Patient SOB and fatigued, requiring ~5 minutes seated rest in between session. Patient gait trained to/from bathroom with FWW and CGA 15'x2 and transferred on/off commode CGA with UE assist from rail to Left of commode. Patient returned to supine position in bed. Comfortable, call [place] within reach. Plan to continue PT services to improve endurance, gait, functional mobility, and strength. Thank you. Farida Villarreal,PT,DPT.
[2019-11-08 16:00] VITALS: BP 108/61
--- NOTE | 2019-11-08 19:54 | NUR ---
24 HR chart check completed.
--- NOTE | 2019-11-08 21:38 | NUR ---
PATIENT ALERT AND ORIENTED X3. HAD TO USE BATHROOM. GUARD ENTERED ROOM AND UNSHACKLED PATIENT. PATIENT TO BATHROOM WITH USE OF WALKER AND DID WELL. HAD LOOSE STOOL AND VOIDED. PATIENT GIVEN IMODIUM PER ORDER FOR LOOSE STOOL. PM CARE GIVEN AND PATIENT BACK TO BED. GUARD ENTERED ROOM AND RESHACKLED PATIENT TO BED. PATIENT HAD FEW MOIST PRODUCTIVE COUGHS IN ROOM. SPOKE TO PATIENT ABOUT EATING YOGURT,BANANA, APPLESAUCE, TEA AND TOAST TO HELP WITH DIARRHEA. BRUISING NOTED AROUND LEFT ARM WHERE SHACKLE IS AND ALSO BRUISE ON RIGHT FOREARM NOTED. NO C/O VOICED OF CP.
[2019-11-09] VITALS: BP 122/66
--- NOTE | 2019-11-09 02:14 | NUR ---
SLEEPING. RESP. REGULAR AND EASY. NO ACUTE DISTRESS NOTED.
--- NOTE | 2019-11-09 04:10 | NUR ---
SLEEPING. NO ACUTE DISTRESS NOTED.
[2019-11-09 06:00] VITALS: BP 103/65
--- NOTE | 2019-11-09 06:00 | NUR ---
Pt. had shackles on when weight was obtained. occas. productive cough through out the night. No c/o voiced this am.
[2019-11-09 08:00] VITALS: BP 112/57
--- NOTE | 2019-11-09 08:35 | NUR ---
PATIENT AWAKE, ALERT, & ORIENTED X3. LUNGS DIMINISHED T/O. POX 96% ON 2L NC. ABD SOFT & NONTENDER. PT STATES THAT IMODIUM WAS EFFECTIVE. TRACE-1+ EDEMA NOTED TO BLE. CALL LIGHT IS WITHIN REACH AT ALL TIMES.
--- NOTE | 2019-11-09 09:30 | NUR ---
Received voicemail from Dr. Anderson. Returned call. Voicemail left. Awaiting return call.
[2019-11-09 10:13] LABS: BASO # 0.1 10*3/uL (0.0-0.1); EOS # 0.5 10*3/uL (0.0-0.4); EOS % 7.5 % (1.0-4.0); HEMATOCRIT 36.7 % (42.0-52.0); LYMPH # 1.3 10*3/uL (1.3-4.4); LYMPH % 21.8 % (27.0-41.0); MEAN CELL VOLUME 98.9 fl (80.0-94.0); MEAN CORPUSCULAR HGB CONC 31.3 g/dl (33.0-37.0); MEAN PLATELET VOLUME 9.2 fl (9.6-12.3); MONO # 0.5 10*3/uL (0.1-1.0); MONO % 8.6 % (3.0-9.0); NEUT # 3.7 10*3/uL (2.3-7.9); NEUT % 60.6 % (47.0-73.0); PLATELET COUNT AUTOMATED 339 10*3/uL (130-400); RED BLOOD COUNT 3.71 10*6/uL (4.50-5.90); RED CELL DISTRI WIDTH 14.3 % (0-14.5)
[2019-11-09 10:26] LABS: ALBUMIN 2.7 gm/dl (3.1-4.5); ALKALINE PHOSPHATASE 129 U/L (45-117); BUN 10 mg/dl (7-24); CHLORIDE 108 mmol/L (98-107); POTASSIUM 4.1 mmol/L (3.5-5.1); SGOT/AST 21 IU/L (3-35); SGPT/ALT 32 U/L (12-78); SODIUM 139 mmol/L (136-145); TOTAL PROTEIN 6.5 gm/dL (6.4-8.2)
--- NOTE | 2019-11-09 11:43 | NUR ---
PHYSICAL THERAPY Physical therapy treatment session complete. Total time in room: 90 minutes. Total treatment time: 75 minutes. Shower: 15 minutes. Patient supine in bed upon arrival and agreeable to skilled PT services. SpO2 97% on 2L O2 upon arrival. Patient performed bed mobility to sit EOB with SBA. Patient performed sit to stand training from EOB, 5 sets of 10 repetitions each, total of 50 sit to stand repetitions. SpO2 ranging from 86-89% following each set of x10 sit to stands. After verbal cueing to relax shoulders, breathe deep/slow in through nose/out mouth, SpO2 >90% within 1 minute. Patient performed Gait training in room with FWW and SBA, 40'x1 with SpO2 at 94% on 2L O2 via NC and 60'x1 SpO2 89% on 2L via NC. ~3 minute rest between each gait session. Patient gait trained from bed to bathroom 15'x1, transferred onto commode, SpO2 90% on 2L via NC. SBA transfer to standing with use of BUE on railing to left. Patient gait trained 5'x1 from commode to shower. Transfer into shower, in shower 15 minutes. Able to stand for beginning portion of shower, then sat on bench. SpO2 90% at end of shower. CGA to transfer out of shower. Gait trained back to chair from shower with SBA and FWW, 10'x1. Patient resting in recliner chair at end of session. Call [place] within reach. Plan to progress per POC to return to PLOF. Thank you. Farida Villarreal,PT,DPT
--- NOTE | 2019-11-09 11:54 | NUR ---
Spoke to Padmini and Dr. Anderson regarding discharge planning. Explained a COVID swab was done yesterday. Awaiting results to see about proceeding with a stress test.
--- NOTE | 2019-11-09 13:40 | NUR ---
PATIENT TRANSFERRED AT THIS TIME TO ROOM 526. REPORT GIVEN TO RECEIVING RN.
--- NOTE | 2019-11-09 14:30 | NUR ---
PT ON FLOOR. REPORT RECIEVED FROM BECCA NOVA.
--- NOTE | 2019-11-09 14:50 | NUR ---
IN TO ROOM. PT AWAKE, ALERT AND ORIENTED. NO STATED COMPLAINTS AT THIS TIME. NO SOB NOTED. 02 2L NC INTACT. PT DENIES PAIN. PT SECURED TO THE BED. SKIN ASSESSED UNDER HANDCUFFS. PT COOPERATIVE WITH ASSESSMENT AND CARE. PLEASANT. APPROPRIATE SPEECH. BED IN LOWEST LOCKED POSITION AND CALL LIGHT WITHIN REACH. WILL CONTINUE TO MONITOR.
--- NOTE | 2019-11-09 15:28 | NUR ---
PHYSICAL THERAPY Physical therapy treatment session complete. Total treatment time: 51 minutes. Patient supine in bed upon arrival and agreeable to skilled PT services. Patient performed bed mobility to sit EOB with SBA. Patient transferred to standing position at W with SBA, gait trained 35'x1 in room. Patient returned to seated position and rested for ~5 minutes. PT acquired recliner chair for in room. Patient transferred to standing position with SBA, and gait trained 100'x1 in room with FWW. Mild SOB following, 90% on 2 L O2 via NC. Patient rested for ~2 minutes. Sit to stand activity performed from EOB. Patient completed sit to stand 2 sets of 10 repetitions each. SpO2 down to 89% on 2L O2 via NC. Patient rested ~2 minutes prior to gait training from bed to commode, 10'x1. Patient transferred on/off commode with SBA and use of BUE on left railing. Patient gait trained to sink, washed hands, and then gait trained back to bed, 15'x1. Patient returned to supine position, comfortable, call [place] within reach. Plan to progress gait, endurance, and functional mobility. Continue per POC. Thank you. Farida Villarreal,PT,DPT.
[2019-11-09 16:00] VITALS: BP 111/61
--- NOTE | 2019-11-09 22:10 | NUR ---
Neurological: AAOX3 Respiratory: 2L VIA NC, NONLABORED, TEE Breath sounds: DIMINISHED BILATERALLY Cough: CLEAR SPUTUM PER PATIENT Cardiovascular: HRR, DENIES CP/PRESSURE, NO EDEMA, PPP Gastrointestinal: NORMOACTIVE X4 QUADS, DENIES N/V/D/C, SOFT, NONTENDER, NONDISTENDED Genito/Urinary: DENIES DYSURIA, URINAL/RESTROOM Musculoskeketal: AMBULATORY, NYSTATIN TO ABDOMINAL FOLD, ANKLE SHACKLES, RIGHT ARM SHACKLE TO BED PATIENT IS RESTING IN BED AFTER GOING TO RESTROOM WITH EASY AND REGULAR RESPERS. ASSESSMENT IS COMPLETE WITH NO C/O OR S/S OF DISTRESS NOTED AT THIS TIME. VITALS OBTAINED AND STABLE. 2200 MEDICATIONS GIVEN AND PATIENT TOLERATED WELL. BED IS LOW, LOCKED, AND CALL LIGHT IS WITHIN REACH.
[2019-11-10] VITALS: BP 120/63
[2019-11-10 08:00] VITALS: BP 126/63
--- NOTE | 2019-11-10 10:12 | NUR ---
Spoke to Padmini at the shelter regarding possibility of patient returning tonight or tomorrow. Patient will not be able to return to the shelter, he will need some more therapy and continued O2 requirements. Explained his 2nd COVID was negative, discussed therapy notes, and that he was going for a stress test today. Per Dr. Fraser if the patient's stress test was negative she would like to send him back possibly tonight. A decision will not be made until the stress test results come back and he will need either [facility] or [facility]. She states we can regroup tomorrow, 11/10.
--- NOTE | 2019-11-10 10:54 | NUR ---
PHYSICAL THERAPY Physical therapy treatment session complete. Total treatment time: 46 minutes. Patient recently had negative covid test via nasal swab. Entered room practicing droplet precautions this date. Patient supine in bed upon arrival and agreeable to skilled PT services. Patient performed bed mobility from supine position to sitting EOB independently. Patient SpO2 94% on 2L O2 at start of session. Performed sit to stand 2 x15 with seated rest break in between. Patient SpO2 desaturation to 81% following first set x15 sit to stands from EOB. After ~1 minute, SpO2 up to 90% on 2 L O2 via NC. Patient rested for ~3 minutes between sessions. SpO2 up to 94% on 2L O2 via NC. Sit to stand x15 performed second time. SpO2 dropped to 82% on 2L O2 via NC. Patient had seated rest break for ~3 minutes, and SpO2 up to 95% on 2L O2 via NC. Patient gait trained in room, 100'x1 with FWW and SBA for safety with O2 cord. SpO2 at 89-90% on 2L O2 after first gait session. Patient rested for ~3 minutes. Gait trained in room 100'x1 wtih FWW and SBA for safety with O2 cord. SpO2 at 88% on 2L O2 via NC. SpO2 up to 94% prior to gait training from bed to bathroom, 15'x1. Transfer on/off commode with SBA and BUE assist from railing to Left. Patient gait trained to sink to wash hands, and then gait trained back to bed, 15'x1. Patient returned to sitting EOB, donned facemask, and then gait trained with FWW and SBA 25'x1 to door. Patient transferred into wheelchair and is being taken to stress test at end of session. Plan to progress per POC to improve endurance, strength, and functional mobility. Thank you. Farida Villarreal,PT,DPT
--- NOTE | 2019-11-10 13:45 | NUR ---
INFORMED CONSENT OBTAINED FOR LEXISCAN NUCLEAR STRESS TEST WITH DR. VIDAL. RESTING EKG NSR WITH A RESTING HR OF 77 WITH BP OF 120/58. HAS INVERTED T WAVES IN LEADS II,III,AVF AND V2-V6. LUNGS CLEAR WITH SPO2 OF 98% ON ROOM AIR. PT IS WEARING A SURGICAL MASK AND IN CONTACT ISOLATION. PT COMPLETED A 1:00 LEXISCAN PROTOCOL RECEIVING LEXISCAN 0.4 MG IV OVER 10 SECONDS. HAD C/O CHEST DISCOMFORT, SHORTNESS OF BREATH AND COUGHING THAT SUBSIDED IN RECOVERY. HAD NO NEW EKG CHANGES. HAD A PEAK HR OF 113 WITH BP OF116/60. LAST RECOVERY HR OF 99 WITH BP OF 114/64. AWAITING SCANNING IN STABLE CONDITION.
[2019-11-10 16:00] VITALS: BP 127/65
--- NOTE | 2019-11-10 16:00 | NUR ---
PHYSICAL THERAPY Physical therapy treatment session complete. Total treatment time: 60 minutes. Patient supine in bed upon arrival, following return of stress test and eating first meal following NPO for testing. Patient agreeable to skilled PT services. Patient came to sitting EOB, transferred to standing position, and gait trained in room. Patient gait trained 288'x1 with FWW, SBA, and 2L O2 as well as multiple turns and no LOB. Patient returned to sitting EOB for rest, and SpO2 at 90% following gait. Patient rested ~3 minutes and then performed sit to stand activity. Patient performed 3 sets of x15 repetitions with 2L O2 via NC. SpO2 following 3 sets of x15 sit to stands as follows: 90%, 89% and 84%. SpO2 raised to 90% or greater within 30 seconds of rest. Patient rested ~5 minutes between each sit to stand set. At end of session, patient gait trained 15' to bathroom, transferred on/off commode, and 15'x1 back to bed. Use of FWW, SBA, and 2L O2 via NC. Patient returned to supine position in bed, comfortable and call [place] within reach. Plan to continue skilled PT services per POC to return to PLOF. Thank you. Farida Villarreal,PT,DPT.
--- NOTE | 2019-11-10 19:25 | NUR ---
CHART CHECK COMPLETE.
[2019-11-10 21:02] VITALS: BP 110/55
--- NOTE | 2019-11-10 21:22 | NUR ---
PATIENT IS AAOX3 RESTING IN BED WITH EASY AND REGULAR RESPERS ON 2L VIA NC. ASSESSMENT IS COMPLETE WITH NO C/O OR S/S OF DISTRESS NOTED AT THIS TIME. VITAL SIGNS OBTAINED AND STABLE. 2200 MEDICATIONS GIVEN. BED IS LOW, LOCKED, AND CALL LIGHT IS WITHIN REACH. SHACKLES TO LEFT ARM AND BILATERAL ANKLES. GUARD TOOK PATIENT TO RESTROOM AND SHACKLES REAPPLIED. WILL CONTINE TO MONITOR, SEE SHIFT ASSESSMENT.
--- NOTE | 2019-11-11 02:23 | NUR ---
PATIENT SLEEPING WITH EASY AND REGULAR RESPERS ON 2L O2 VIA NC. CALL LIGHT IS WITHIN REACH.
--- NOTE | 2019-11-11 04:49 | NUR ---
ANGELA JACQUES [id number] Please refer to the physician's history and physical for past medical history, comorbid conditions, and allergies. Diagnosis: COVID-19 INFECTION George Score: 15,AT RISK WOUND DESCRIPTIONS: Wound Number: 1 Location of the wound: left lateral heel Type of wound: DTI Size: 2.0cm x 2.2cm x <0.1cm Tunneling: none Undermining: none Sinus Tract: none Presence of Exudate: none Amount: None Color: Purple, brown, dark red Odor: None Periwound Skin Appearance: Normal Wound edges: approximated Pain (associated with wound): none at time of assessment How does patient state this happened? pt unable to state how this happened Surface the patient is resting on: Isoflex SKIN PREVENTION RECOMMENDATION: 1. Pressure redistribution support surface as appropriate 2. Elevate heels 3. Remove boots/TEDS every shift and reapply 4. Head of bed 30 degrees as tolerated 5. Assess nutrition and hydration 6. Manage moisture 7. Avoid the use of containment devices while in bed 8. Use absorptive products on surfaces limit layers of linens on bed 9. Turn and reposition every 1-2 hours in bed and every 1 hour in chair as tolerated 10. Weight shifts every 15 minutes while up in chair 11. Offloading with pillows or device to keep heels elevated off bed 12. Monitor skin at least every shift 13. Inspect under medical devices twice a day WOUND TREATMENT RECOMMENDATIONS: Continue DTI guidelines to left lateral heel Continue heel raiser pro boots to bilateral feet while in bed Continue dressing change to cleanse buttocks with soap and water and apply hydraguard every shift and prn for soiling. Continue wheelchair cushion when oob.
[2019-11-11 08:00] VITALS: BP 113/56
--- NOTE | 2019-11-11 08:22 | NUR ---
IN TO ASSESS PATIENT AT THIS TIME. COMPLAINING OF CONTINUED HEADACHE, WILL ADMINISTER MORE TYLENOL WITH MORNING MEDICATIONS. PT REFUSED NYSTATIN POWDER AND CALAZIME LOTION, STATES HE "DOESN'T NEED IT". LUNGS DIMINISHED. PATIENT STILL NOTICEABLY SHORT OF BREATH ON EXERTION, STATES THAT IS THE "ONE THING HE CAN'T SEEM TO BEAT IS BEING SHORT OF BREATH". PULSE OX 95% ON 2L NC. STILL HAVING PRODUCTIVE COUGH BUT SAYS THAT IT HAS IMPROVED. REQUIRING A WALKER FOR ASSISTANCE, APPEARS WEAK. WILL CONTINUE TO MONITOR.
--- NOTE | 2019-11-11 08:40 | NUR ---
SPOKE WITH ANEL FROM [facility] TEACHER AT [facility]. STATES THAT DR VIDAL WANTS TO HAVE THE PATIENT TRANSFERRED FOR A HEART CATH TODAY PROBABLY LATER THIS AFTERNOON. STATES THAT SHE WILL CALL ME BACK WITH A TIME.
--- NOTE | 2019-11-11 08:48 | NUR ---
SPOKE WITH ANEL FROM [facility] SOFTWARE ENGINEER [facility]ERNEL TO INFORM HER THAT THE PATIENT ATE BREAKFAST, STATED THAT WAS OKAY, JUST TO MAKE HIM NPO NOW. WILL REMOVE FLUIDS/FOOD FROM PATIENTS ROOM. ALSO STATED TO HOLD BLOOD THINNERS IF ORDERED ANY.
--- NOTE | 2019-11-11 08:56 | NUR ---
PHYSICAL THERAPY Physical therapy treatement complete. Total treatment time: 85 minutes. Patient supine in bed upon arrival and agreeable to skilled PT services. SpO2 at 93% on 2L O2 via NC at start of PT session. Patient performed gait training in room, 384' x1 with FWW and SBA for safety with O2 cord. Patient performed multiple turns with FWW with no LOB. Patient on 2L O2 throughout session, SpO2 at 90% following gait training. Patient rested, seated on EOB for ~5 minutes. Patient transferred to standing position and gait trained in room with FWW and SBA 288'x1 with multiple turns and no LOB. Patient rested sitting on EOB for ~5 minutes. Patient performed sit to stand 3 sets of 15. SpO2 following each set x15 as follows: 86%, 88%, 87%, respectively, on 2L O2 via NC. Patient fatigued and SOB after each set of x15 stands. Patient SpO2 raised to range of 90-94% within 30 seconds rest. Gait to/from bathroom 15'x2 with FWW and SBA, transfer on/off commode with SBA and use of BUE on handrail to Left. Patient returned to supine position in bed, comfortable, call [place] within reach. Plan to progress endurance, safety, and improve functional mobility with LRAD. Continue per POC. Thank you. Farida Villarreal,PT,DPT.
--- NOTE | 2019-11-11 09:00 | NUR ---
PT WORKING WITH PHYSICAL THERAPY AT THIS TIME.
--- NOTE | 2019-11-11 09:00 | NUR ---
TALKED WITH ALICE AT [facility] ABOUT POSSIBLE TRANSFER OF PT TO [facility] FOR HEART CATH TODAY. STATES SHE WILL TALK WITH WHO SHE NEEDS TO TALK TO, TO SEE IF THIS CAN HAPPEN AND WILL CALL ME BACK.
--- NOTE | 2019-11-11 09:22 | NUR ---
TYLENOL ADMINISTERED FOR PT C/O HEADACHE. WILL MONITOR.
--- NOTE | 2019-11-11 09:22 | NUR ---
RECEIVED A CALL FROM ALICE AT [facility], SHE NEEDS TO KNOW TIME THAT PT IS BEING DISCHARGED TO [facility] SO THEY CAN GET A PLAN IN PLACE. CALLED FLOOR AND SPOKE WITH [facility] AND THEY DO NOT HAVE A TIME YET. SHE WILL LET ME KNOW WHEN THEY GET A TIME.
--- NOTE | 2019-11-11 09:31 | NUR ---
DR MODI CALLED AND STATES PER DR URIAS IF PT IS NOT ADMITTED TO [facility]' THAT HE CAN COME BACK TO [facility] FOR CONTINUED PHYSICAL THERAPY. MARY JENKINS IN MEDICAL SERVICES AT [place].
--- NOTE | 2019-11-11 09:43 | NUR ---
DR ORDOÑEZ AWARE OF PT TX TO [facility] FOR HEART CATH SOMETIME THIS AFTERNOON.
[2019-11-11] MEDS ORDERED: PREDNISONE20 M1 PO (11:00)
--- NOTE | 2019-11-11 11:32 | NUR ---
PT REFUSING D/C WOUND PICTURES.
--- NOTE | 2019-11-11 12:04 | NUR ---
PHYSICAL THERAPY Physical therapy treatment complete. Total treatment time: 64 minutes. Patient supine in bed upon entry to room and agreeable to skilled PT services. Patient performed 3 sets of x15 sit to stands from EOB with FWW. Patient SOB and fatigued following each session. SpO2 after each set as follows: 87%, 88%, 89%, respectively, on 2L O2 via NC. Patient rested for ~3 minutes between each set. SOB occurs around 12th sit to stand out of 15 total per set. SpO2 up to >90% within 30 seconds seated rest break. Patient gait trained in room with FWW and SBA for safety with O2 cord. Patient performed 384' x1 (128 yards) with multiple turns, no LOB. Mild fatigue following gait session. SpO2 at 91% following gait this date. Patient returned to sitting EOB, rested for ~5 minutes. Patient transferred to standing position and performed bilateral heel raises x40 with UE support at walker. Patient rested ~2 minutes EOB following heel raises. Patient transferred to standing position and performed hip extension x20 bilaterally with UE support at walker. Patient returned to supine position at end of session. Patient comfortable, call salinas within reach. Plan to continue PT services to progress gait distance, endurance, strength, and functional mobility. Continue per POC. Thank you. Farida Villarreal,PT,DPT.
--- NOTE | 2019-11-11 12:29 | NUR ---
SPOKE WITH ANEL FROM [facility] SEISMOGRAPH OPERATOR HELPER, STATES THAT WE CAN BEGIN ARRANGING TRANSPORTATION AND HAVE PT UP TO THEM WHENEVER POSSIBLE.
--- NOTE | 2019-11-11 13:06 | NUR ---
LIFETIME TO PICK PATIENT UP FOR HEART CATH AT 1400. IF PT DOESN'T NEED STENTS HE IS ABLE TO COME BACK FOR REHAB, IF STENTS ARE NEEDED, PT WILL STAY AT [facility]'.
--- NOTE | 2019-11-11 15:20 | NUR ---
REPORT CALLED INTO ANEL ELECTRICAL APPRENTICE AT [facility].
[2019-11-11 16:00] VITALS: BP 112/58
--- NOTE | 2019-11-11 16:04 | NUR ---
DIANA PIÑA FROM CALLED AND STATES THAT HYDRAULIC STRAINER OPERATOR FROM [facility] CALLED AND IT IS TOO LATE TO DO CATH NOW. [facility] WAS UNABLE TO TRANSPORT PT UNTIL NOW. PT WILL NOT GO UNTIL THURSDAY TO [facility]. ALICE FROM [facility] NOTIFIED. FRANCESCA FROM PT NOTIFIED THAT PT WILL BE HERE TOMORROW FOR PT.
--- NOTE | 2019-11-11 16:09 | NUR ---
[facility] STILL NOT HERE TO GET PATIENT. SPOKE WITH GUM SPRAYER, STATES THAT DR VIDAL IS AGREEABLE TO DO THE CATH ON MONDAY 11/13 INSTEAD.
--- NOTE | 2019-11-11 16:11 | NUR ---
NEW HEP LOCKS TO PATIENTS RIGHT ARM AND LEFT HAND. TOLERATED WELL.
--- NOTE | 2019-11-11 16:30 | NUR ---
TOOK OVER CARE OF PT AT THIS TIME. PT RESTING IN BED. ALERT ORIENTED AND PLEASANT MOOD. COOPERATIVE WITH STAFF AND WITH CARE. VITALS OBTAINED AND WNL. NO COMPLAINTS ARE VOICED. EVENING MEDS GIVEN PER ORDERS. CALL LIGHT IN REACH. SAFETY MEASURES IN PLACE.
[2019-11-12] VITALS: BP 93/50
--- NOTE | 2019-11-12 05:35 | NUR ---
PT AWAKE AND RESTING IN BED. HE STATES HE IS FEELING "GREAT" AND HAS NO C/O AT THIS TIME. BED IS LOW, CALL LIGHT WITHIN REACH. WILL CONTINUE TO MONITOR.
--- NOTE | 2019-11-12 07:30 | NUR ---
TOOK OVER CARE OF PT. PT RESTING IN BED. RESPIRATIONS EASY AND UNLABORED. NO S/S OF DISTRESS NOTED. ALL SAFETY MEASURES IN PLACE. CALL LIGHT IN REACH.
[2019-11-12 08:00] VITALS: BP 124/65
--- NOTE | 2019-11-12 09:30 | NUR ---
AM MEDICATIONS TAKEN WITH EASE. VITALS WNL. ASSESSMENT REVEALS NO NEW ABNORMALITIES AT THIS TIME. RESPIRATIONS UNLABORED ON 2L NC. PT DENIES SHORTNESS OF BREATH AT REST. PT DENIES ANY NEW COMPLAINTS AND DENIES CHEST PAIN. SAFETY MEASURES IN PLACE. CALL LIGHT IN REACH.
--- NOTE | 2019-11-12 09:49 | NUR ---
PHYSICAL THERAPY Physical therapy treatment complete. Total treatment time: 74 minutes. Patient supine in bed upon arrival and agreeable to skilled PT services. Starting SpO2 94% on 2L 02 via NC. Patient performed bed mobility to sit EOB, transferred to standing position, and gait trained 480' (160 yards) in room with FWW and SBA for safety with O2. SpO2 89-90% following gait. Patient rested for ~3 minutes, SpO2 95% prior to sit to stand activities. Patient performed x15 sit to stands from EOB, SpO2 86%, up to >90% within 30 seconds. Patient rested for ~2 minutes, and performed x15 sit to stands, SpO2 86%, up to >90% in ~30 seconds. Patient rested for ~3 minutes sitting EOB. Patient gait trained within room without use of FWW. Gait 220' (~73 yards) CGA with UE touching support to wall at times. No LOB. Patient fatigued follow gait. SpO2 91% on 2L O2 via NC. November trial cane at next PT session. Patient performed 3 more sets of sit to stands x15 each set. SpO2 89-90%, 88%, and 88-90%, respectively following each of the three sessions of sit to stands. Five sets of x15 sit to stands this session, totaling 75 total sit to stands. Endurance is improving, and is Fair with activity this date. Patient ended session with gait training 264' (88 yards) with FWW and SBA for safety with O2 cord. SpO2 91% following gait training. Patient fatigued at end of session and returned to supine position in bed. Comfortable, call salinas within reach. Plan to continue to improve endurance, strength, functional mobility, and safety to return to OF. Thank you. Farida Villarreal,PT,DPT.
--- NOTE | 2019-11-12 12:00 | NUR ---
PT LUNCH ORDERED AT THIS TIME. PT PARTICIPATING IN PHYSICAL THERAPY. WILL CONTINUE TO MONITOR. CALL LIGHT IN REACH.
[2019-11-12 15:58] LABS: ABG BASE EXCESS -0.5 mmol/L (-2.0-2.0); ARTERIAL BLOOD GAS PH 7.427 (7.35-7.45)
[2019-11-12 16:00] VITALS: BP 125/66
--- NOTE | 2019-11-12 18:21 | NUR ---
PT SITTING UP IN BED, EATING DINNER. NO S/S OF DISTRESS NOTED. NO COMPLAINTS VOICED. RESPIRATIONS UNLABORED ON 2L NC. SAFETY MEASURES IN PLACE. CALL LIGHT IN REACH.
--- NOTE | 2019-11-12 20:04 | NUR ---
ASSUMED CARE FOR THIS PT AT THIS TIME. PT C/O MID STERNAL CHEST PRESSURE 4/10 BUT REFUSING TYLENOL. C/O MILD SOB. SAT 97% ON 2LNC. CALL LIGHT IN REACH.
[2019-11-13] VITALS: BP 118/61
[2019-11-13 08:00] VITALS: BP 127/58
--- NOTE | 2019-11-13 08:00 | NUR ---
PT SITTING UP IN BED. RESP-EASY AND REGULAR. ON ROOM AIR. C/O MIDSTERNAL CHEST PRESSURE STATES HE HAS IT ALL THE TIME. REFUSED ANY PAIN MEDICATIONS AT THIS TIME. CALL LIGHT IN REACH. SEE SHIFT ASSESSMENT.
--- NOTE | 2019-11-13 08:13 | NUR ---
PT ASSISTED TO WHEELCHAIR TO GO FOR X-RAY. PULSE OX WHILE UP TO CHAIR DROPS TO 87-89% ON ROOM AIR. PLACED 2 LITERS WHILE UP ON PT AND PULSE OX 94%. GUARD WENT TO X-RAY WITH PT.
--- NOTE | 2019-11-13 08:30 | NUR ---
PT BACK TO BED. RESP-EASY AND REGULAR. PULSE OX 92% RA WHILE IN BED. CALL LIGHT IN REACH.
--- NOTE | 2019-11-13 15:10 | NUR ---
PHYSICAL THERAPY Physical therapy treatment session complete. Total treatment time: 73 minutes. Patient supine in bed upon entry and agreeable to skilled PT services. Patient resting in bed at 94% SpO2 on Room Air. Patient reports that he was instructed to not wear supplemental O2 while resting, but to use it with activity. Continued 2L O2 via NC for PT treamtent this date. SpO2 ranging from 89-95% throughout session. Patient performed bed mobility to sit EOB, transferred to standing position and gait trained from bed to bathroom with single point cane and CGA, 15'x1. Patient transferred on/off commode. Able to stand from commode with SBA, with use of BUE on railing to left. Patient gait trained to sink with cane and CGA, washed hands, and returned to sitting EOB, 15'x1. Patient SpO2 91% on 2L O2 via NC following gait. Patient rested ~2 minutes sitting EOB, and then gait trained with cane 240' (80 yards) and CGA. Patient cautious with turning, but did not experience LOB. SpO2 94% on 2L O2 via NC following gait. Patient rested sitting EOB for ~3 minutes and then gait trained with cane 240' (80 yards) and CGA. Continued caution with cane, and generalized fatigue noted. SpO2 89-90% on 2L O2 following gait. Patient rested ~3 minutes, and then performed three sets of x15 sit to stands from EOB. SpO2 90%, 89%, and 89%, respectively following each sit to stand activity. ~2 minutes rest between sessions. Following sit to stand activity, patient rested for ~3 minutes. Gait training in room with FWW and SBA, 480' (160 yards) with multiple turns and no LOB. SBA necessary for management of O2. Patient took standing rest break for 1 minute, SpO2 92% on 2L O2 via NC. Patient then continued to walk with FWW and SBA, 480' (160 yards) with multiple turns and no LOB. Patient very fatigued at end of gait, walking 960' (320 yards) without a seated rest break. SpO2 91% on 2L O2 via NC following gait. Patient rested seated on EOB for ~5 minutes. After rest, patient performed five sets of sit to stands x15. SpO2 91%, 90%, 89%, 89%, and 90%, respectively. SpO2 at <90% for seconds at a time, and then came up to 90-92%. Total of 120 sit to stands performed throughout this PT session. Minimal SOB noted this date. Patient experiencing gross fatigue at end of PT session. Patient returned to supine position, comfortable, call salinas within reach. Plan to continue PT services to increase funtional mobility, strength, endurance, and safety with AD and O2. Recommend rollator walker for return to PLOF due to increased fatigue and SOB with longer distances. Rollator walker would allow for seated rest breaks as needed, as well as storage for food or other items as necessary. Thank you. Farida Villarreal,PT,DPT.
--- NOTE | 2019-11-13 15:14 | NUR ---
PHYSICAL THERAPY IN WITH PT TOOK PT TO BATHROOM. NO C/O AT THIS TIME. CALL LIGHT IN REACH.
[2019-11-13 16:00] VITALS: BP 130/62
--- NOTE | 2019-11-13 23:58 | NUR ---
PATIENT RESTING IN BED WITH NO NEEDS MADE. DENIES SHORTNESS OF BREATH AT THIS TIME. BED IN LOW POSITION, CALL LIGHT IN REACH
[2019-11-14] VITALS: BP 135/81; BP 141/82
--- NOTE | 2019-11-14 01:46 | NUR ---
24 HR chart check completed.
--- NOTE | 2019-11-14 02:03 | NUR ---
PATIENT RESTING IN BED WITH EYES CLOSED. RESPS EASY AND REGULAR. PATIENT SECURED TO BED. BED IN LOW POSITION, CALL LIGHT IN REACH
--- NOTE | 2019-11-14 06:40 | NUR ---
CALLED TO GIVE REPORT TO [facility] LEASING CONSULTANT. SPOKE WITH ANEL SEAMAN, WHO STATES THAT THE PATIENT IS NOT TO BE UP THERE UNTIL LATER. SHE STATES THAT SINCE THE PATIENT HAS BEEN ON A COVID UNIT HE HAS TO BE TREATED A COVID PATIENT AND GO LATER IN THE DAY. ALUMINA REFINERY OPERATOR MICHAEL MADE AWARE, NEEDLE PUNCH OPERATOR MADE AWARE.
--- NOTE | 2019-11-14 07:43 | NUR ---
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
[2019-11-14 08:00] VITALS: BP 125/71
--- NOTE | 2019-11-14 09:45 | NUR ---
PHYSICAL THERAPY Physical therapy treatment complete. Total treatment time: 69 minutes. Patient supine in bed and agreeable to skilled PT services. Patient on Room Air at start of PT session, 94%. Patient performed bed mobility, sat EOB, and performed x5 sit to stands with room air. SpO2 drop to 86%. 2L O2 via NC placed, and SpO2 raised to 94% within seconds. Patient continued to wear 2L O2 via NC throughout rest of PT treatment. Patient performed sit to stand activity, three sets of x15. SpO2 91%, 92%, and 95%, repectively, on 2L O2 via NC. Patient rested ~2 minutes between each set of x15 stands. Patient gait trained in room, 480' (160 yards) with FWW and SBA for O2 cord safety. Numerous turns with no LOB. Patient fatigued, mildly SOB. SpO2 93% on 2L O2 via NC. Standing rest break for 1 minute. Patient gait trained another 480' (160 yards) with FWW, SBA for O2 cord safety. SpO2 95% on 2L O2 via NC. Patient gait trained into bathroom, transferred on/off commode with SBA and use of BUE on railing to left of commode. Patient gait trained to sink, washed hands, and then gait trained back to bed, 15'x2, SpO2 95%on 2L O2 via NC. Patient rested on EOB for ~2 minutes, and then completed three sets of x15 sit to stands. SpO2 88%, 92%, and 91%, respectively, on 2L O2 via NC. Patient rested ~2 minutes between sets. Education on breathing techniques to slow breathing and reduce apparent anxiousness. Patient rested ~3 minutes, and then gait trained with single point cane and CGA, 240' x1. SpO2 95% on 2L O2 via NC. Patient fatigued following gait, and returned to sitting EOB. Patient rested for ~2 minutes, and then completed two sets of x15 sit to stands. SpO2 91% and 92%, respectively, on 2L O2 via NC. Patient returned to supine position in bed, comfortable, call salinas within reach. Plan to return for second session and progess gait. Continue per POC. Recommend rollator walker for return to [facility] for increased safety. Thank you. Farida Villarreal,PT,DPT.
--- NOTE | 2019-11-14 11:00 | NUR ---
CALLED ALICE AT [facility] TO INFORM HER THAT PT WAS TO LEAVE HERE AT 12 NOON TO GO TO [facility]' FOR HEART CATH. NO ANSWER, LEFT MESSAGE ON HER VOICE MAIL.
--- NOTE | 2019-11-14 11:30 | NUR ---
HAVE NOT RECEIVED A CALL BACK FROM ALICE AT [facility] ABOUT DISCHARGE. CALLED LONG TERM TO HAVE HER PAGED. TALKED WITH HER AT 1138, SHE STATES [facility] WILL CALL TO SEE ABOUT GETTING GUARDS HERE BUT IT WILL NOT BE BY NOON. SHE WILL CALL ME BACK. INFORMED KENYA MARTINEZ ON 5E.
--- NOTE | 2019-11-14 11:41 | NUR ---
ALICE FROM [facility] CALLED BACK AND STAFF IS IN ROUTE TO HOSPITAL FOR TRANSFER.
--- NOTE | 2019-11-14 12:02 | NUR ---
PT OFF FLOOR AND TRANSPORTED TO [facility] FOR OUTPATIENT HEART CATH. PT WILL RETURN FOLLOWING CATH UNLESS STENT IS PLACED.
--- NOTE | 2019-11-14 12:10 | NUR ---
NOTIFIED ANEL AT [facility] MAIN DIGITAL PRODUCTION MANAGER OF PT LEAVING HERE. ATTEMPTED TO GIVE NURSE TO NURSE. PER ANEL,RN SHE WAS "REALLY BUSY AND WOULD RETURN MY CALL FOR REPORT".
--- NOTE | 2019-11-14 12:41 | NUR ---
PHYSICAL THERAPY Afternoon PT session attempted. Patient transferred to [facility] via ambulance for heart cath. Will follow to see if/when patient returns for continued skilled PT services. Thank you. Farida Villarreal,PT,DPT.
--- NOTE | 2019-11-14 14:59 | NUR ---
PT REMAINS AT [facility] FOR OUTPATIENT HEART CATH PROCEDURE. NO UPDATE YET FROM CHARGE,AVTAR TAM.
--- NOTE | 2019-11-14 17:10 | NUR ---
REPORT GIVEN TO ALCIRA ANDREW. PT WILL BE PICKED AT [facility] AT 530 PM AND TRANSPORTED BACK TO [facility] TO ROOM 428.
--- NOTE | 2019-11-14 18:22 | NUR ---
REPORT RECEIVED FROM AVTAR BRISCOE AT [facility] DEVELOPMENT MANAGER. PATIENT IS EN ROUTE WITH A MOBILITY BOARD TO RIGHT WRIST IN PLACE TO PROTECT THE ARTERY USED FOR CATHETERIZATION, HE ADVISED TO KEEP THIS IN PLACE UNTIL 1729 TOMORROW.
[2019-11-14 20:00] VITALS: BP 112/69
--- NOTE | 2019-11-14 21:02 | NUR ---
24 HR chart check completed.
[2019-11-15 08:00] VITALS: BP 112/64
--- NOTE | 2019-11-15 08:30 | NUR ---
Patient resting quietly with no c/o discomfort. Respirations easy and regular. Vital signs stable. No overt distress. ARMIN BARRY R
--- NOTE | 2019-11-15 10:59 | NUR ---
SPOKE WITH ALICE AT [facility], SHE STATES THEY NORMALLY DO NOT TAKE PT WITH O2 BUT SINCE THE COVID, THEY HAVE CHANGED SOME THINGS. SHE WILL CHECK ON IT. ALSO SENT HER REQUESTED PRGRESS NOTES, PT NOTES AND MED LIST. SHE IS GOING TO CHECK WITH [facility] TO SEE IF IT IS BEST FOR HIM TO RETURN THERE OR GO TO REHAB. SHE WILL CALL ME BACK.
--- NOTE | 2019-11-15 11:00 | NUR ---
PHYSICAL THERAPY Physical therapy treatment session complete. Total treatment time: 55 minutes. Patient supine in bed upon arrival and agreeable to skilled PT services. Patient SpO2 at 94% O2 on Room Air at start of PT session. Patient performed 5 sit to stands from EOB on RA. SpO2 drops to 86%, breathing techniques for ~1 minute and up to 88%. Patient continued to feel SOB, and replaced supplemental O2 at 2L via NC for rest of PT session. Patient gait trained 892' (297 yards) with FWW, 2L O2 via NC, and SBA for O2 cord safety. Patient mildly SOB at end of gait, with SpO2 at 93% on 2L O2 via NC. Patient rested on EOB ~5 minutes. Patient performed five sets of x20 sit to stands from EOB with ~2 minutes seated rest break between sets. Patient SpO2 88%, 89%, 89%, 90%, and 93%, respectively following each set. SpO2 >90% on 2L O2 within 30 seconds of rest. Patient gait trained to/from bathroom 15'x2, transferred on/off commode with SBA. At end of session, patient returned to supine position in bed. Comfortable, call salinas within reach. Recommend rollator walker at discharge for seated rest as needed. Continue per POC. Thank you. Farida Villarreal,PT,DPT.
--- NOTE | 2019-11-15 11:53 | NUR ---
PER ALICE AT [facility], PT CAN RETURN ON OXYGEN. STATES PT CAN BE DISCHARGED BACK TODAY. DR ALTAMIRANO NOTIFIED.
[2019-11-15 12:00] VITALS: BP 121/72
--- NOTE | 2019-11-15 13:02 | NUR ---
HOME O2 ASSESSMENT: PRE BP: 121/72, HR 73, RR 18, PULSE OX 95% ON ROOM AIR AT REST. AMBULATED PATIENT IN [place] WITH ASSIST OF A WALKER, PULSE OX DECREASED TO 87% ON ROOM AIR WHILE AMBULATING. PATIENT VISIBLY SHORT OF BREATH. PLACED 2 L/M ON PATIENT, SAT >94% WHILE AMBULATING. POST BP: 136/83, HR 73, RR 20, PULSE OX 97% ON 2 L/M AT REST. CASE MANAGEMENT NOTIFIED THAT PATIENT QUALIFIES FOR HOME O2.
--- NOTE | 2019-11-15 13:36 | NUR ---
SPOKE WITH ALICE AT [facility], SHE STATES THEY HAVE O2 TANKS AND CONCENTRATORS AND ALSO WHEELED WALKERS, SO PT CAN BE DISCHARGED. DR ALTAMIRANO NOTIFIED.
--- NOTE | 2019-11-15 13:40 | NUR ---
PHYSICAL THERAPY Physical therapy treatment complete. Total treatment time: 33 minutes. Patient supine in bed upon arrival and agreeable to skilled PT services. Patient gait trained 892' (297 yards) with FWW and SBA for O2 safety. Patient on 2L O2 via NC throughout PT session. SpO2 at 93% following gait this date. Patient rested for ~2 minutes, and then performed two sets of x20 sit to stands from EOB. Patient SpO2 at 89% and 90%, respectively. ~2 minutes seated rest between each set. Patient gait trained to/from bathroom (15'x2) and transferred on/off commode. Good balance with FWW, Fair endurance. Minimal SOB noted with 2L O2 via NC. Patient returned to supine position, comfortable, call salinas within reach. Patient planning to discharge from facility this date. Continue to recommend rollator walker for safety with return. Thank you. Farida Villarreal,PT,DPT.
--- NOTE | 2019-11-15 16:38 | NUR ---
Discharge instructions reviewed with patient/family. Patient receptive and verbalizes understanding. Follow-up care arranged. Written instructions given to patient/family. ARMIN BARRY
== END 2019-11-15 16:38 | DRG 870 ==
LOC: 5E 19:07 → 4NE 11-04 06:32 → 5E 11-09 12:20 → 4E 11-14 16:49
PROVIDERS: Family Medicine; Internal Medicine; Internal Medicine Critical Care Medicine; Student in an Organized Health Care Education/Training Program; ADMIT Internal Medicine
DX: A41.9 Sepsis, unspecified organism (principal); U07.1 COVID-19; J12.89 Other viral pneumonia; J96.01 Acute respiratory failure with hypoxia; E43 Unspecified severe protein-calorie malnutrition; E87.1 Hypo-osmolality and hyponatremia; I24.8 Other forms of acute ischemic heart disease; E87.2 Acidosis; K62.5 Hemorrhage of anus and rectum; R65.20 Severe sepsis without septic shock; E66.9 Obesity, unspecified; D53.9 Nutritional anemia, unspecified; R73.9 Hyperglycemia, unspecified; E83.39 Other disorders of phosphorus metabolism; E78.5 Hyperlipidemia, unspecified; I25.10 Atherosclerotic heart disease of native coronary artery without angina pectoris; F39 Unspecified mood [affective] disorder; E03.9 Hypothyroidism, unspecified; F32.9 Major depressive disorder, single episode, unspecified; G40.909 Epilepsy, unspecified, not intractable, without status epilepticus; M19.90 Unspecified osteoarthritis, unspecified site; I95.9 Hypotension, unspecified; E87.6 Hypokalemia; Z96.611 Presence of right artificial shoulder joint; Z96.612 Presence of left artificial shoulder joint; I10 Essential (primary) hypertension; Z79.82 Long term (current) use of aspirin; Z79.899 Other long term (current) drug therapy; Z95.5 Presence of coronary angioplasty implant and graft; Z68.33 Body mass index [BMI] 33.0-33.9, adult